=== PATIENT | male | born 1945 | race Caucasian/White ===

== ENCOUNTER 2017-06-27 06:58 | Outpatient (CLI) | payer MEDICARE | END 2017-06-27 06:59 | disposition home or self-care (01) | LOC: BICULT 06:58 | PROVIDERS: ATTEND Family Medicine | DX: Z87.891 Personal history of nicotine dependence (principal); Z82.49 Family history of ischemic heart disease and other diseases of the circulatory system | CPT/HCPCS: 76775 ==

== ENCOUNTER 2017-09-21 10:44 | Outpatient (CLI) | payer MEDICARE | END 2017-09-21 10:45 | disposition home or self-care (01) | LOC: BICULT 10:44 | PROVIDERS: ATTEND Family Medicine | DX: K70.30 Alcoholic cirrhosis of liver without ascites (principal); K76.89 Other specified diseases of liver | CPT/HCPCS: 36415; 76705; 85025 ==

== ENCOUNTER 2017-10-16 09:47 | Outpatient (CLI) | payer MEDICARE ==
--- NOTE | 2017-10-16 11:54 | CT ---
CT ABDOMEN WITHOUT AND WITH CONTRAST: Date: 10/16/17 COMPARISON: None. HISTORY: Right upper quadrant abdominal pain and bloating. Alcoholic cirrhosis. TECHNIQUE: Multiple contiguous axial images were obtained in a CT of the abdomen only without and with contrast. PO contrast was administered. Coronal reformats were performed. Postcontrast images were obtained in arterial and portal venous phases. FINDINGS: There is diffuse fatty infiltration of the liver. The liver morphology does not appear overtly cirrho tic. No focal liver lesions are seen. There is a 1.1 cm hypodensity in the left kidney which represents a cyst. The gallbladder, right kidn ey, adrenal glands, spleen, and pancreas are unremarkable. No free air, free fluid, or stranding chang ges are seen in the abdomen. The visualized large and small bowel are unremarkable. No abdominal adenopathy is seen. Atherosclerot ic calcifications are seen in the aorta. Degenerative changes are seen in the spine. The visualized inferior thorax and abdominal wall soft ti ssues are unremarkable. IMPRESSION: 1. Left renal cyst. 2. Fatty liver. POS: NILS
[2017-10-16] MEDS ORDERED: Iopamidol 370 76% 100 ML VIAL ONE (14:45)
== END 2017-10-16 09:48 | disposition home or self-care (01) ==
LOC: CT 09:47
PROVIDERS: ATTEND Family Medicine
DX: K70.30 Alcoholic cirrhosis of liver without ascites (principal); N28.1 Cyst of kidney, acquired; K76.0 Fatty (change of) liver, not elsewhere classified
CPT/HCPCS: 74170; 82565

== ENCOUNTER 2018-08-25 18:20 | Emergency (ER) | payer MEDICARE ==
[2018-08-25 19:05] LABS: #Lymphocytes 0.6 thou/uL (1.20-3.40); #Monocytes 0.8 thou/uL (0.11-0.59); #Neutrophils 5.8 thou/uL (1.40-6.50); %Basophils 0.3 % (0.0-1.0); %Eosinophils 0.3 % (0.0-10.0); %Lymphocytes 8.5 % (21.0-51.0); %Monocytes 10.7 % (0.0-10.0); %Neutrophils 80.2 % (42.0-75.0); Hemoglobin 9.6 g/dL (14.0-18.0); Mean Corpuscular HGB CONC 34.1 g/dL (32.0-36.0); Mean Corpuscular Hemoglobin 32.7 pg (27.0-31.0); Mean Corpuscular Volume 95.9 fL (78.0-98.0); Mean Platelet Volume 6.2 fL (7.4-10.4); Platelet Count 146 thou/uL (130-400); RBC Distribution Width 13.5 % (11.5-14.5); Red Blood Cell (RBC) Count 2.95 mill/uL (4.70-6.10); White Blood Cell (WBC) Count 7.2 thou/uL (4.8-10.8)
[2018-08-25 19:07] LABS: INR-International Normal Ratio 1.3; PTT 35.4 SEC (22.9-36.1); Prothrombin Time 16.1 SEC (12.0-14.7)
[2018-08-25 19:20] LABS: ALT (SGPT) 19 U/L (8-55); AST (SGOT) 39 U/L (5-34); Albumin 3.9 g/dL (3.4-4.8); Alkaline Phosphatase 83 U/L (40-150); Anion Gap 19 mmol/L (10-20); BUN (Urea Nitrogen) 10 mg/dL (8.4-25.7); Bilirubin, Total 1.3 mg/dL (0.2-1.2); Calc. Creatinine Clearance 0 mL/min (70-130); Calcium 9.5 mg/dL (7.8-10.44); Carbon Dioxide 22 mmol/L (23-31); Chloride 101 mmol/L (98-107); Estimated GFR-MDRD 80; Globulin 3.4 g/dL (2.4-3.5); Glucose 148 mg/dL (83-110); Potassium 4.1 mmol/L (3.5-5.1); Protein, Total 7.3 g/dL (5.8-8.1); Sodium 138 mmol/L (136-145)
[2018-08-25 19:36] LABS: Bilirubin Negative (Negative); Blood, Urine Large (Negative); Clarity TURBID (Clear); Glucose, Urine (Dipstick) Negative (Negative); Leukocyte Large (Negative); Nitrite Negative (Negative); Protein, Urine (Dipstick) 100 mg/dL (Neg-Trace); Specific Gravity, Urine 1.012 (1.002-1.036)
[2018-08-25 19:39] LABS: Hyaline Casts/LPF 4-6 HYALINE CAST LPF (0-3 Hyaline); Pathc Cast-AUWi Flag 1.77 (0-2.49); Squamous Epithelial None Seen HPF (0-3)
[2018-08-25 19:40] LABS: Yeast-AUWi Flag 149.2 (0-25.0)
[2018-08-25 19:48] LABS: RBC/HPF GREATER THAN 50-TNTC HPF (0-3)
[2018-08-25 19:49] LABS: Bacteria/HPF 3+ HPF (None Seen); Yeast-All Forms None Seen HPF (None Seen)
[2018-08-25] MEDS ORDERED: cefTRIAXone\\ROCEPHIN 2 GM VIAL ONE (20:16)
--- NOTE | 2018-08-25 22:23 | CT ---
CT ABDOMEN AND PELVIS WITHOUT CONTRAST: History: Hematuria. Comparison: 10-15-17 FINDINGS: Lung bases are clear. No pericardial effusion. There is moderate left sided hydroureteronephrosis due to what appears to be a large mass within the distal left ureter. The distal left ureter measures 3.2 cm. The ureterovesicular junction is enlarged with abnormal soft tissue thickening. There is no nephroureterolithiasis of either kidney. The right testicle appears to be within the right inguinal canal which may be sequellae of incomplete ly distention of the scrotal sac versus less likely cremasteric reflux. No dilated loops of large or small bowel. Noncontrast evaluation of the liver, gallbladder, spleen, a nd pancreas are unremarkable. Moderate atherosclerotic plaque of the aorta. Moderate facet arthropathy and degenerative disc space disease lower lumbar spine. IMPRESSION: Mild left sided hydronephrosis with moderate left sided hydroureter due to a mass in the distal left ureter measuring up to 3.2 cm, 1 cm from the ureterovesicular junction which is thickened. The left s ided renal calices do not appear to be engorged enough for a nephrostomy. Urologic consultation recom mended. POS: NILS
== END 2018-08-25 21:07 | disposition home or self-care (01) ==
LOC: ERS 18:20
DX: N13.2 Hydronephrosis with renal and ureteral calculous obstruction (principal); N39.0 Urinary tract infection, site not specified; E03.9 Hypothyroidism, unspecified; E78.00 Pure hypercholesterolemia, unspecified; Z79.899 Other long term (current) drug therapy; I10 Essential (primary) hypertension
CPT/HCPCS: 36415; 74176; 80053; 81003; 81015; 82550; 85025; 85610; 85730; 86850; 86900; 86901; 87077; 87086; 87186; 93005; 96365; J0696

== ENCOUNTER 2019-08-29 11:22 | Outpatient (CLI) | payer MEDICARE ==
--- NOTE | 2019-08-29 12:05 | MMO ---
Bilateral MAMMO Bilat Diag DDI+SUN. CLINICAL HISTORY: Patient is 74 years old and is seen for diagnostic exam, lump or thickening in both breasts and pain in the right breast. The patient has the following family history of breast cancer: mother, at age 80, malignant (generic). The patient has no personal history of cancer. VIEWS: The views performed were: bilateral craniocaudal with tomosynthesis; bilateral mediolateral oblique with tomosynthesis; and bilateral mediolateral with tomosynthesis. FILMS COMPARED: None This study has been interpreted with the assistance of computer-aided detection. MAMMOGRAM FINDINGS: There are scattered fibroglandular densities. Asymmetric retroareolar parenchymal density on the right corresponds to palpable concern. Mammogram and ultrasound suggest unilateral gynecomastia. Ultrasound guided biopsy could be performed for confirmation. If Biopsy is deferred, recommend 6 month follow up imaging. In the left breast, there are no suspicious masses, calcifications or areas of architectural distortion. IMPRESSION: FINDING IN THE RIGHT BREAST IS PROBABLY BENIGN. FOLLOW-UP IN 6 MONTHS IS RECOMMENDED. THE RESULTS OF THIS EXAM WERE SENT TO THE PATIENT. ACR BI-RADS Category 3 - Probably benign finding - short interval follow-up suggested. [facility] will notify the patient of the need for additional imaging services. MAMMOGRAPHY NOTE: 1. A negative mammogram report should not delay a biopsy if a dominant of clinically suspicious mass is present. 2. Approximately 10% to 15% of breast cancers are not detected by mammography. 3. Adenosis and dense breasts may obscure an underlying neoplasm. Reported by: URVASHI GUZMAN MD Electonically Signed: [id number]
--- NOTE | 2019-08-29 12:32 | ULT ---
ULTRASOUND RIGHT BREAST: Indications: Ultrasound right breast performed to assess enlarging right retroareolar breast tissue. Asymmetric retroareolar parenchymal densities noted on mammography. FINDINGS: Ultrasound demonstrates increased breast tissue in the retroareolar region of the right breast. This has the appearance of breast parenchyma rather than focal mass. Left retroareolar region is imaged wh ich shows minimal breast parenchyma. IMPRESSION: Mammogram and ultrasound findings are most consistent with unilateral gynecomastia. No focal mass or distortion is seen. Ultrasound guided biopsy could be performed for confirmation. If biopsy is deferr ed, recommend follow up right breast mammogram and ultrasound in six months to confirm stability. BIRADS 3 - probably benign. 6-month follow up imaging is recommended. POS: NILS
== END 2019-08-29 11:23 | disposition home or self-care (01) ==
LOC: BICMAMMO 11:22
PROVIDERS: ATTEND Family Medicine
DX: N63.10 Unspecified lump in the right breast, unspecified quadrant (principal); N63.20 Unspecified lump in the left breast, unspecified quadrant; T88.7XXA Unspecified adverse effect of drug or medicament, initial encounter
CPT/HCPCS: 76642; 77066; G0279

== ENCOUNTER 2020-02-04 17:03 | Emergency (ER) | payer MEDICARE ==
[2020-02-04 17:45] LABS: Hemoglobin 12.8 g/dL (14.0-18.0); Mean Corpuscular HGB CONC 33.3 g/dL (32.0-36.0); Mean Corpuscular Hemoglobin 30.6 pg (27.0-31.0); Mean Platelet Volume 7.6 fL (7.4-10.4); Platelet Count 125 thou/uL (130-400); RBC Distribution Width 18.5 % (11.5-14.5); Red Blood Cell (RBC) Count 4.17 mill/uL (4.70-6.10); White Blood Cell (WBC) Count 15.9 thou/uL (4.8-10.8)
[2020-02-04 18:08] LABS: Band 40 % (5-11); Lymphocytes 1 % (21-51); MDiff Complete? YES; Monocytes 21 % (0-10); Neutrophil 31 % (42-75); Platelet Morphology Comment Appears Decreased; Polychromasia SLIGHT = 2-3 cells (100X) (0-2/hpf); Reactive Lymphocytes 7 % (0-10)
[2020-02-04 18:09] LABS: Digoxin 0.77 ng/mL (0.8-2.0)
[2020-02-04 18:10] LABS: ALT (SGPT) 15 U/L (8-55); AST (SGOT) 32 U/L (5-34); Albumin 3.8 g/dL (3.4-4.8); Alkaline Phosphatase 60 U/L (40-110); Anion Gap 12 mmol/L (10-20); BUN (Urea Nitrogen) 14 mg/dL (8.4-25.7); Bilirubin, Total 1.3 mg/dL (0.2-1.2); Calc. Creatinine Clearance 0 mL/min (70-130); Calcium 8.5 mg/dL (7.8-10.44); Carbon Dioxide 25 mmol/L (23-31); Chloride 87 mmol/L (98-107); Estimated GFR-MDRD 53; Globulin 3.5 g/dL (2.4-3.5); Glucose 148 mg/dL (83-110); Potassium 3.4 mmol/L (3.5-5.1); Protein, Total 7.3 g/dL (5.8-8.1); Sodium 121 mmol/L (136-145)
[2020-02-04 18:27] LABS: CKMB 2.1 ng/mL (0-6.6)
== END 2020-02-04 20:05 | disposition left against medical advice (07) ==
LOC: ERS 17:03
DX: E87.1 Hypo-osmolality and hyponatremia (principal); R55 Syncope and collapse; R79.89 Other specified abnormal findings of blood chemistry; E03.9 Hypothyroidism, unspecified; E78.5 Hyperlipidemia, unspecified; E78.00 Pure hypercholesterolemia, unspecified; I10 Essential (primary) hypertension; V49.9XXA Car occupant (driver) (passenger) injured in unspecified traffic accident, initial encounter
CPT/HCPCS: 36415; 80053; 80162; 80307; 82553; 84484; 85025; 93005

== ENCOUNTER 2020-02-12 08:29 | Outpatient (CLI) | payer MEDICARE ==
--- NOTE | 2020-02-12 08:48 | RAD ---
XR Chest Pa Lat STANDARD HISTORY: Hyponatremia COMPARISON: 08/11/2016 FINDINGS: The heart size is normal. The lungs are well expanded without focal areas of consolidation, pneumothorax or pleural effusions. IMPRESSION: No radiographic evidence of acute cardiopulmonary process.
== END 2020-02-12 08:30 | disposition home or self-care (01) ==
LOC: BICRAD 08:29
PROVIDERS: ATTEND Family Medicine
DX: E87.1 Hypo-osmolality and hyponatremia (principal)
CPT/HCPCS: 36415; 71046; 80053; 82140; 82533; 83036; 83735; 83930; 84165; 84443; 85025

== ENCOUNTER 2020-03-26 14:57 | Outpatient (CLI) | payer MEDICARE ==
--- NOTE | 2020-03-26 15:29 | MMO ---
Right Breast MAMMO Unilat Diag DDI RT+SUN. CLINICAL HISTORY: Patient is 74 years old and is seen for diagnostic exam. The patient has the following family history of breast cancer: mother, at age 80, malignant (generic). The patient has no personal history of cancer. VIEWS: The views performed were: right craniocaudal with tomosynthesis; right mediolateral oblique with tomosynthesis; and right mediolateral with tomosynthesis. FILMS COMPARED: The present examination has been compared to a prior imaging study performed at [facility] on 08/29/2019. This study has been interpreted with the assistance of computer-aided detection. MAMMOGRAM FINDINGS: The breast is almost entirely fat. Changes of gynecomastia are redemonstrated, appearing more conspicuous than on prior. There are no suspicious masses, suspicious calcifications, or new areas of architectural distortion. IMPRESSION: THERE IS NO MAMMOGRAPHIC EVIDENCE OF MALIGNANCY. ANY DECISION TO BIOPSY SHOULD BE BASED ON CLINICAL ASSESSMENT. THE RESULTS OF THIS EXAM WERE SENT TO THE PATIENT. ACR BI-RADS Category 2 - Benign finding MAMMOGRAPHY NOTE: 1. A negative mammogram report should not delay a biopsy if a dominant of clinically suspicious mass is present. 2. Approximately 10% to 15% of breast cancers are not detected by mammography. 3. Adenosis and dense breasts may obscure an underlying neoplasm. Reported by: MURIEL RIDDLE MD Electonically Signed: [id number]
== END 2020-03-26 14:58 | disposition home or self-care (01) ==
LOC: BICMAMMO 14:57
PROVIDERS: ATTEND Family Medicine
DX: N63.10 Unspecified lump in the right breast, unspecified quadrant (principal); N62 Hypertrophy of breast; Z80.3 Family history of malignant neoplasm of breast
CPT/HCPCS: 77065; G0279

== ENCOUNTER 2020-05-04 19:31 | Emergency (ER) | payer MEDICARE ==
--- NOTE | 2020-05-04 20:51 | RAD ---
THREE VIEWS LEFT HAND: 05/04/20 COMPARISON: None. HISTORY: Fall Sunday with deformity of the left hand and specifically the middle finger. FINDINGS: Three views of the left hand shows dislocation of the PIP joint of the middle finger. The fingers are held in flexion. There is remodeling of the fifth metacarpal secondary to a remote Hill-Sachs fractu re in this location. There is joint space narrowing of the interphalangeal joints of the fingers cons istent with osteoarthritis. IMPRESSION: PIP dislocation of the middle finger. POS: EAA
--- NOTE | 2020-05-04 21:32 | CT ---
CT Brain WO Con: 05/04/2020 9:15 PM CLINICAL HISTORY: Fall with head injury. IMAGING TECHNIQUE: Multiple CT images were obtained of the brain without IV contrast. COMPARISON: None. FINDINGS: BRAIN: Evidence of acute infarct: None. Evidence of chronic ischemic change:None. Evidence of intracranial hemorrhage: None. Evidence of midline shift: Third ventricle and septum pellucidum are midline. Ventricles: No hydrocephalus. There is mild generalized cerebral and cerebellar atrophy. SKULL: Intact. VISUALIZED PARANASAL SINUSES: Clear. MASTOID AIR CELLS: There are partial effusions within the mastoid air cells bilaterally. EXTRACRANIAL SOFT TISSUES: Normal. IMPRESSION: No acute intracranial abnormality.
[2020-05-04 21:47] LABS: Hemoglobin 12.9 g/dL (14.0-18.0); Mean Corpuscular HGB CONC 34.9 g/dL (32.0-36.0); Mean Corpuscular Hemoglobin 33.4 pg (27.0-31.0); Mean Corpuscular Volume 95.8 fL (78.0-98.0); Mean Platelet Volume 6.4 fL (7.4-10.4); Platelet Count 183 thou/uL (130-400); RBC Distribution Width 14.6 % (11.5-14.5); Red Blood Cell (RBC) Count 3.85 mill/uL (4.70-6.10); White Blood Cell (WBC) Count 7.1 thou/uL (4.8-10.8)
[2020-05-04 21:49] LABS: INR-International Normal Ratio 1.1; Prothrombin Time 14.7 sec (12.0-14.7)
[2020-05-04 21:50] LABS: PTT 37.7 sec (22.9-36.1)
[2020-05-04] MEDS ORDERED: Bupivacaine 0.5% 10 ML VIAL ONE (21:59)
[2020-05-04 22:04] LABS: ALT (SGPT) 30 U/L (8-55); AST (SGOT) 47 U/L (5-34); Albumin 4.2 g/dL (3.4-4.8); Alkaline Phosphatase 92 U/L (40-110); Anion Gap 15 mmol/L (10-20); BUN (Urea Nitrogen) 9 mg/dL (8.4-25.7); Bilirubin, Total 1.2 mg/dL (0.2-1.2); Calc. Creatinine Clearance 0 mL/min (70-130); Calcium 9.1 mg/dL (7.8-10.44); Carbon Dioxide 27 mmol/L (23-31); Chloride 96 mmol/L (98-107); Estimated GFR-MDRD 83; Globulin 3.3 g/dL (2.4-3.5); Glucose 98 mg/dL (83-110); Magnesium 1.4 mg/dL (1.6-2.6); Potassium 3.8 mmol/L (3.5-5.1); Protein, Total 7.5 g/dL (5.8-8.1); Sodium 134 mmol/L (136-145)
[2020-05-04 22:22] LABS: Band 10 % (5-11); Eosinophils 4 % (0-10); Hypochromia SLIGHT = 6-15 cells (100X) (0-5/hpf); Lymphocytes 10 % (21-51); MDiff Complete? YES; Monocytes 14 % (0-10); Neutrophil 62 % (42-75); Platelet Morphology Comment Appears Adequate
== END 2020-05-04 23:30 | disposition home or self-care (01) ==
LOC: ERS 19:31
DX: S63.283A Dislocation of proximal interphalangeal joint of left middle finger, initial encounter (principal); E03.9 Hypothyroidism, unspecified; E78.5 Hyperlipidemia, unspecified; E78.00 Pure hypercholesterolemia, unspecified; I48.91 Unspecified atrial fibrillation; I10 Essential (primary) hypertension; Z79.899 Other long term (current) drug therapy; Z91.81 History of falling; W18.30XA Fall on same level, unspecified, initial encounter
CPT/HCPCS: 26770; 36415; 70450; 80053; 83735; 84484; 85025; 85610; 85730; 93005; J3490

== ENCOUNTER 2023-01-18 21:16 | Inpatient (IN) | payer MEDICARE ==
[2023-01-18] MEDS ORDERED: Ondansetron PF 4 MG/2 ML Vial ONE (21:48)
[2023-01-18 22:15] LABS: #Monocytes 1.2 thou/uL (0.11-0.59); #Neutrophils 8.6 thou/uL (1.40-6.50); %Basophils 0.1 % (0.0-1.0); %Monocytes 11.6 % (0.0-10.0); %Neutrophils 84.8 % (42.0-75.0); Mean Corpuscular HGB CONC 32.1 g/dL (32.0-36.0); Mean Corpuscular Hemoglobin 29.7 pg (27.0-31.0); Mean Corpuscular Volume 92.4 fl (78.0-98.0); Mean Platelet Volume 9.1 fL (7.4-10.4); RBC Distribution Width 15.7 % (11.5-14.5); Red Blood Cell (RBC) Count 3.03 mill/uL (4.70-6.10); White Blood Cell (WBC) Count 10.2 10x3/uL (4.8-10.8)
[2023-01-18 22:31] LABS: ALT (SGPT) 27 U/L (8-55); AST (SGOT) 80 U/L (5-34); Albumin 4.2 g/dL (3.4-4.8); Alcohol Less than 10.0 mg/dL (Less than 10); Alkaline Phosphatase 189 U/L (40-110); Anion Gap 22 mmol/L (10-20); BUN (Urea Nitrogen) 12 mg/dL (8.4-25.7); Bilirubin, Total 2.6 mg/dL (0.2-1.2); Calc. Creatinine Clearance 0 mL/min (70-130); Calcium 9.3 mg/dL (7.8-10.44); Carbon Dioxide 20 mmol/L (23-31); Chloride 101 mmol/L (98-107); Estimated GFR 69; Globulin 3.1 g/dL (2.4-3.5); Glucose 113 mg/dL (83-110); Potassium 4.7 mmol/L (3.5-5.1); Protein, Total 7.3 g/dL (5.8-8.1); Sodium 138 mmol/L (136-145)
[2023-01-18 22:36] LABS: Manual Diff?? YES; Platelet Count 90 10x3/uL (130-400)
[2023-01-18 22:48] LABS: Bacteria/HPF None Seen HPF (None Seen); Bilirubin Negative (Negative); Blood, Urine 3+ (Negative); CAUTI Indications for Culture Pelvic or flank pain; Clarity Clear (Clear); Glucose, Urine (Dipstick) Normal (Negative); Ketone, Urine 20 mg/dL (Negative); Leukocyte Negative Leu/uL (Negative); Mucous/LPF Rare LPF (<2+); Nitrite Negative (Negative); Protein, Urine (Dipstick) 50 mg/dL (Neg-Trace); Specific Gravity, Urine 1.018 (1.002-1.036); Squamous Epithelial 0-3 HPF (0-3); Urobilinogen 3 mg/dL (Less than 2); WBC/HPF 0-3 HPF (0-3)
[2023-01-18 22:52] LABS: Urine Culture Reflex No No
[2023-01-18 23:20] LABS: Anisocytosis MARKED = >30 cells HPF (0-5); Band 11 % (5-11); Lymphocytes 3 % (21-51); Macrocytosis MODERATE=16-30 cells HPF (0-5); Monocytes 6 % (0-10); Neutrophil 79 % (42-75); Platelet Adequacy Comment Platelets Decreased; Polychromasia SLIGHT = 2-3 cells HPF (0-2); Reactive Lymphocytes 1 % (0-10); Total Cell Count 101
[2023-01-19] MEDS ORDERED: Ondansetron ODT 4 MG TAB PO PRN (04:17)
[2023-01-19] MEDS ORDERED: Lorazepam 1 MG TAB PO PRN (04:17)
[2023-01-19] MEDS ORDERED: Lorazepam 2 MG/ML VIAL IM PRN (04:17)
[2023-01-19] MEDS ORDERED: Electrolyte Replacement Protocol 1 EACH FS SCH (04:30)
[2023-01-19 04:51] LABS: CKMB 43.5 ng/mL (0-6.6)
[2023-01-19] MEDS ORDERED: D5 1/2 NS w/20 mEq KCL 1,000 ML IV SCH (05:00)
[2023-01-19 05:07] LABS: Magnesium 1.6 mg/dL (1.6-2.6)
[2023-01-19] MEDS: Lorazepam 1 MG TAB PO SCH ×3 (05:29→18:45)
[2023-01-19] MEDS: Thiamine HCl 200 MG/2 ML VIAL SLOW IVP SCH (05:29)
[2023-01-19] MEDS: Levothyroxine Sodium 50 MCG TAB PO SCH (05:29)
[2023-01-19 05:38] VITALS: BMI 24.5
[2023-01-19 06:49] LABS: Troponin I 0.066 ng/mL (< 0.028)
[2023-01-19] MEDS ORDERED: Magnesium 2 GM/50 ML(in water) 2 GM in Premix Bag 1 BAG IVPB SCH (08:00)
[2023-01-19] MEDS: Multivit, Therapeutic 1 TAB PO SCH (08:23)
[2023-01-19] MEDS: Folic Acid 1 MG TAB PO SCH (08:23)
[2023-01-19] MEDS ORDERED: Dronedarone HCl 400 MG TAB PO SCH (09:00)
[2023-01-19] MEDS ORDERED: Apixaban 5 MG TAB PO SCH (09:00)
[2023-01-19] MEDS: Sodium Chloride 0.9% 1,000 ML IV SCH ×2 (11:58→20:48)
[2023-01-19 16:54] LABS: Magnesium 1.9 mg/dL (1.6-2.6)
[2023-01-19] MEDS: Montelukast Sodium 10 mg Tablet PO SCH (20:48)
[2023-01-19] MEDS: Atorvastatin Calcium 40 MG TAB PO SCH (20:48)
[2023-01-19] MEDS: Amlodipine 5 MG TAB PO SCH (20:49)
[2023-01-20] MEDS: Lorazepam 1 MG TAB PO SCH ×4 (00:07→16:03)
[2023-01-20 03:51] LABS: #Monocytes 1.3 thou/uL (0.11-0.59); #Neutrophils 8.2 thou/uL (1.40-6.50); %Basophils 0.2 % (0.0-1.0); %Eosinophils 0.2 % (0.0-10.0); %Lymphocytes 6.5 % (21.0-51.0); %Monocytes 12.9 % (0.0-10.0); %Neutrophils 79.4 % (42.0-75.0); Hemoglobin 8.5 g/dL (14.0-18.0); Mean Corpuscular HGB CONC 31.3 g/dL (32.0-36.0); Mean Corpuscular Hemoglobin 29.6 pg (27.0-31.0); Mean Corpuscular Volume 94.8 fl (78.0-98.0); RBC Distribution Width 15.7 % (11.5-14.5); Red Blood Cell (RBC) Count 2.87 mill/uL (4.70-6.10); White Blood Cell (WBC) Count 10.3 10x3/uL (4.8-10.8)
[2023-01-20 03:56] LABS: Platelet Count 71 10x3/uL (130-400)
[2023-01-20] MEDS ORDERED: Lorazepam 1 MG TAB PO PRN (04:17)
[2023-01-20] MEDS: Thiamine HCl 200 MG/2 ML VIAL SLOW IVP SCH (05:45)
[2023-01-20] MEDS: Sodium Chloride 0.9% 1,000 ML IV SCH ×3 (05:45→16:02)
[2023-01-20] MEDS: Levothyroxine Sodium 50 MCG TAB PO SCH (05:45)
[2023-01-20] MEDS ORDERED: Magnesium 2 GM/50 ML(in water) 2 GM in Premix Bag 1 BAG IVPB SCH (08:00)
[2023-01-20] MEDS: Folic Acid 1 MG TAB PO SCH (08:44)
[2023-01-20] MEDS: Multivit, Therapeutic 1 TAB PO SCH (08:44)
[2023-01-20 10:35] LABS: BUN (Urea Nitrogen) 15 mg/dL (8.4-25.7); Calc. Creatinine Clearance 72 mL/min (70-130); Calcium 8.4 mg/dL (7.8-10.44); Carbon Dioxide 21 mmol/L (23-31); Chloride 100 mmol/L (98-107); Estimated GFR 78; Glucose 153 mg/dL (83-110); Potassium 4.1 mmol/L (3.5-5.1); Sodium 132 mmol/L (136-145)
[2023-01-20 11:03] LABS: Anion Gap 15 mmol/L (10-20)
[2023-01-20] MEDS: Acetaminophen 500 MG TAB PO PRN (21:43)
[2023-01-20] MEDS: Amlodipine 5 MG TAB PO SCH (21:43)
[2023-01-20] MEDS: Montelukast Sodium 10 mg Tablet PO SCH (21:43)
[2023-01-20] MEDS: Atorvastatin Calcium 40 MG TAB PO SCH (21:44)
[2023-01-21] MEDS: Lorazepam 1 MG TAB PO SCH (00:01)
[2023-01-21] MEDS ORDERED: Lorazepam 1 MG TAB PO PRN (04:17)
[2023-01-21] MEDS: Sodium Chloride 0.9% 1,000 ML IV SCH ×2 (04:25→13:45)
[2023-01-21] MEDS: Lorazepam 0.5 MG TAB PO SCH ×4 (04:25→23:20)
[2023-01-21 04:54] LABS: #Eosinphils 0.1 thou/uL (0.0-0.7); #Monocytes 1.4 thou/uL (0.11-0.59); #Neutrophils 7.1 thou/uL (1.40-6.50); %Basophils 0.3 % (0.0-1.0); %Eosinophils 0.6 % (0.0-10.0); %Lymphocytes 8.5 % (21.0-51.0); %Monocytes 14.3 % (0.0-10.0); %Neutrophils 75.2 % (42.0-75.0); Hemoglobin 7.3 g/dL (14.0-18.0); Mean Corpuscular HGB CONC 31.9 g/dL (32.0-36.0); Mean Corpuscular Hemoglobin 29.9 pg (27.0-31.0); Mean Corpuscular Volume 93.9 fl (78.0-98.0); Mean Platelet Volume 10.4 fL (7.4-10.4); RBC Distribution Width 15.7 % (11.5-14.5); Red Blood Cell (RBC) Count 2.44 mill/uL (4.70-6.10); White Blood Cell (WBC) Count 9.5 10x3/uL (4.8-10.8)
[2023-01-21 04:58] LABS: Platelet Count 86 10x3/uL (130-400)
[2023-01-21] MEDS: Levothyroxine Sodium 50 MCG TAB PO SCH (05:13)
[2023-01-21] MEDS: Thiamine HCl 200 MG/2 ML VIAL SLOW IVP SCH (05:13)
[2023-01-21 05:17] LABS: Anion Gap 14 mmol/L (10-20); BUN (Urea Nitrogen) 15 mg/dL (8.4-25.7); Calc. Creatinine Clearance 86 mL/min (70-130); Calcium 8.3 mg/dL (7.8-10.44); Carbon Dioxide 22 mmol/L (23-31); Chloride 100 mmol/L (98-107); Estimated GFR 91; Glucose 108 mg/dL (83-110); Potassium 3.6 mmol/L (3.5-5.1); Sodium 132 mmol/L (136-145)
[2023-01-21 05:29] LABS: CK (CPK) 6723 U/L (30-200)
[2023-01-21] MEDS: Multivit, Therapeutic 1 TAB PO SCH (07:57)
[2023-01-21] MEDS: Folic Acid 1 MG TAB PO SCH (07:57)
[2023-01-21] MEDS: Acetaminophen 500 MG TAB PO PRN ×2 (13:44→23:20)
[2023-01-21] MEDS: Montelukast Sodium 10 mg Tablet PO SCH (21:01)
[2023-01-21] MEDS: Amlodipine 5 MG TAB PO SCH (21:01)
[2023-01-21] MEDS: Atorvastatin Calcium 40 MG TAB PO SCH (21:01)
[2023-01-22] MEDS: Sodium Chloride 0.9% 1,000 ML IV SCH ×2 (04:20→15:37)
[2023-01-22 05:29] LABS: #Eosinphils 0.2 thou/uL (0.0-0.7); #Monocytes 1.3 thou/uL (0.11-0.59); #Neutrophils 5.6 thou/uL (1.40-6.50); %Basophils 0.5 % (0.0-1.0); %Eosinophils 2.4 % (0.0-10.0); %Lymphocytes 8.7 % (21.0-51.0); %Monocytes 16.9 % (0.0-10.0); %Neutrophils 70.9 % (42.0-75.0); Hemoglobin 6.7 g/dL (14.0-18.0); Mean Corpuscular HGB CONC 31.8 g/dL (32.0-36.0); Mean Corpuscular Hemoglobin 30.7 pg (27.0-31.0); Mean Corpuscular Volume 96.8 fl (78.0-98.0); Mean Platelet Volume 10.5 fL (7.4-10.4); Platelet Count 103 10x3/uL (130-400); RBC Distribution Width 15.6 % (11.5-14.5); Red Blood Cell (RBC) Count 2.18 mill/uL (4.70-6.10); White Blood Cell (WBC) Count 7.9 10x3/uL (4.8-10.8)
[2023-01-22 05:51] LABS: Anion Gap 14 mmol/L (10-20); BUN (Urea Nitrogen) 11 mg/dL (8.4-25.7); Calc. Creatinine Clearance 88 mL/min (70-130); Calcium 8.2 mg/dL (7.8-10.44); Carbon Dioxide 21 mmol/L (23-31); Chloride 103 mmol/L (98-107); Estimated GFR 92; Glucose 98 mg/dL (83-110); Potassium 4.1 mmol/L (3.5-5.1); Sodium 134 mmol/L (136-145)
[2023-01-22 06:05] LABS: CK (CPK) 5333 U/L (30-200)
[2023-01-22] MEDS: Levothyroxine Sodium 50 MCG TAB PO SCH (06:18)
[2023-01-22] MEDS: Acetaminophen 500 MG TAB PO PRN ×3 (08:35→20:13)
[2023-01-22] MEDS: Folic Acid 1 MG TAB PO SCH (08:36)
[2023-01-22] MEDS: Multivit, Therapeutic 1 TAB PO SCH (08:36)
[2023-01-22] MEDS: Thiamine 100 MG TAB PO SCH (08:39)
[2023-01-22] MEDS: Amlodipine 5 MG TAB PO SCH (20:12)
[2023-01-22] MEDS: Atorvastatin Calcium 40 MG TAB PO SCH (20:12)
[2023-01-22] MEDS: Montelukast Sodium 10 mg Tablet PO SCH (20:24)
[2023-01-22] MEDS: Lorazepam 0.5 MG TAB PO PRN (21:07)
[2023-01-23 04:44] LABS: #Eosinphils 0.1 thou/uL (0.0-0.7); #Monocytes 1.4 thou/uL (0.11-0.59); #Neutrophils 5.3 thou/uL (1.40-6.50); %Basophils 0.3 % (0.0-1.0); %Eosinophils 1.3 % (0.0-10.0); %Lymphocytes 9.4 % (21.0-51.0); %Monocytes 18.3 % (0.0-10.0); %Neutrophils 69.5 % (42.0-75.0); Hemoglobin 8.4 g/dL (14.0-18.0); Mean Corpuscular HGB CONC 31.8 g/dL (32.0-36.0); Mean Platelet Volume 9.1 fL (7.4-10.4); Platelet Count 114 10x3/uL (130-400); RBC Distribution Width 17.6 % (11.5-14.5); White Blood Cell (WBC) Count 7.7 10x3/uL (4.8-10.8)
[2023-01-23] MEDS: Levothyroxine Sodium 50 MCG TAB PO SCH (05:07)
[2023-01-23] MEDS: Sodium Chloride 0.9% 1,000 ML IV SCH ×2 (05:07→17:26)
[2023-01-23 05:22] LABS: Anion Gap 15 mmol/L (10-20); BUN (Urea Nitrogen) 9 mg/dL (8.4-25.7); CK (CPK) 3122 U/L (30-200); Calc. Creatinine Clearance 89 mL/min (70-130); Calcium 8.5 mg/dL (7.8-10.44); Carbon Dioxide 21 mmol/L (23-31); Chloride 99 mmol/L (98-107); Estimated GFR 92; Glucose 94 mg/dL (83-110); Potassium 3.6 mmol/L (3.5-5.1); Sodium 131 mmol/L (136-145)
[2023-01-23] MEDS: Multivit, Therapeutic 1 TAB PO SCH (09:27)
[2023-01-23] MEDS: Thiamine 100 MG TAB PO SCH (09:27)
[2023-01-23] MEDS: Acetaminophen 500 MG TAB PO PRN ×2 (09:27→15:45)
[2023-01-23] MEDS: Folic Acid 1 MG TAB PO SCH (09:27)
[2023-01-23] MEDS: Montelukast Sodium 10 mg Tablet PO SCH (21:54)
[2023-01-23] MEDS: Apixaban 5 MG TAB PO SCH (21:54)
[2023-01-23] MEDS: Amlodipine 5 MG TAB PO SCH (21:54)
[2023-01-23] MEDS: Atorvastatin Calcium 40 MG TAB PO SCH (21:54)
[2023-01-24] MEDS: Sodium Chloride 0.9% 1,000 ML IV SCH ×2 (03:59→12:18)
[2023-01-24] MEDS: Levothyroxine Sodium 50 MCG TAB PO SCH (06:35)
[2023-01-24 06:38] LABS: Hemoglobin 9.1 g/dL (14.0-18.0); Manual Diff?? YES; Mean Corpuscular HGB CONC 33.6 g/dL (32.0-36.0); Mean Corpuscular Hemoglobin 29.4 pg (27.0-31.0); Mean Corpuscular Volume 87.7 fl (78.0-98.0); Mean Platelet Volume 9.3 fL (7.4-10.4); Platelet Count 165 10x3/uL (130-400); RBC Distribution Width 17.1 % (11.5-14.5); Red Blood Cell (RBC) Count 3.09 mill/uL (4.70-6.10); White Blood Cell (WBC) Count 10.4 10x3/uL (4.8-10.8)
[2023-01-24 06:53] LABS: Delete Auto Diff?? YES
[2023-01-24 07:17] LABS: Anion Gap 15 mmol/L (10-20); BUN (Urea Nitrogen) 9 mg/dL (8.4-25.7); CK (CPK) 1704 U/L (30-200); Calc. Creatinine Clearance 95 mL/min (70-130); Calcium 8.6 mg/dL (7.8-10.44); Carbon Dioxide 21 mmol/L (23-31); Chloride 99 mmol/L (98-107); Estimated GFR 94; Glucose 93 mg/dL (83-110); Potassium 3.3 mmol/L (3.5-5.1); Sodium 132 mmol/L (136-145)
[2023-01-24 07:30] LABS: Band 12 % (5-11); CellaVision Operator ID LAB.GE; Giant Platelets 0.9 % (0-5); Large Platelets 0.9 % (0-5); Lymphocytes 4 % (21-51); Metamyelocyte 1 % (0-0); Monocytes 19 % (0-10); Neutrophil 57 % (42-75); Platelet Adequacy Comment Platelets Normal; Poikilocytosis SLIGHT = 6-15 cells HPF (0-5); Polychromasia SLIGHT = 2-3 cells HPF (0-2); Reactive Lymphocytes 6 % (0-10); Total Cell Count 106
[2023-01-24] MEDS ORDERED: Potassium Chloride 20 MEQ TAB PO SCH (08:00)
[2023-01-24] MEDS: Folic Acid 1 MG TAB PO SCH (09:25)
[2023-01-24] MEDS: Apixaban 5 MG TAB PO SCH ×2 (09:25→20:10)
[2023-01-24] MEDS: Multivit, Therapeutic 1 TAB PO SCH (09:25)
[2023-01-24] MEDS: Acetaminophen 500 MG TAB PO PRN (09:26)
[2023-01-24] MEDS: Thiamine 100 MG TAB PO SCH (10:41)
[2023-01-24] MEDS: traMADol HCl 50 MG TAB PO PRN ×2 (15:21→20:09)
[2023-01-24] MEDS: Atorvastatin Calcium 40 MG TAB PO SCH (20:08)
[2023-01-24] MEDS: Amlodipine 5 MG TAB PO SCH (20:11)
[2023-01-24] MEDS: Montelukast Sodium 10 mg Tablet PO SCH (20:11)
[2023-01-24] MEDS ORDERED: Lidocaine 4% Patch TD SCH (20:30)
[2023-01-25] MEDS: Sodium Chloride 0.9% 1,000 ML IV SCH ×3 (00:59→20:57)
[2023-01-25] MEDS: traMADol HCl 50 MG TAB PO PRN ×3 (02:57→22:43)
[2023-01-25] MEDS: Levothyroxine Sodium 50 MCG TAB PO SCH (05:29)
[2023-01-25] MEDS: Apixaban 5 MG TAB PO SCH (08:51)
[2023-01-25] MEDS: Thiamine 100 MG TAB PO SCH (08:51)
[2023-01-25] MEDS: Multivit, Therapeutic 1 TAB PO SCH (08:51)
[2023-01-25] MEDS: Folic Acid 1 MG TAB PO SCH (08:51)
[2023-01-25] MEDS ORDERED: Transdermal Patch Removal TOP SCH (09:00)
[2023-01-25] MEDS ORDERED: Magnevist 469MG/ML 20 ML VIAL ONE (10:30)
[2023-01-25 11:43] LABS: Hemoglobin 8.1 g/dL (14.0-18.0); Manual Diff?? YES; Mean Corpuscular Hemoglobin 29.2 pg (27.0-31.0); Mean Corpuscular Volume 94.2 fl (78.0-98.0); Mean Platelet Volume 9.8 fL (7.4-10.4); Platelet Count 260 10x3/uL (130-400); RBC Distribution Width 17.3 % (11.5-14.5); Red Blood Cell (RBC) Count 2.77 mill/uL (4.70-6.10)
[2023-01-25 11:51] LABS: Delete Auto Diff?? YES
[2023-01-25 12:02] LABS: Anion Gap 14 mmol/L (10-20); BUN (Urea Nitrogen) 13 mg/dL (8.4-25.7); Calc. Creatinine Clearance 88 mL/min (70-130); Calcium 8.4 mg/dL (7.8-10.44); Carbon Dioxide 19 mmol/L (23-31); Chloride 102 mmol/L (98-107); Estimated GFR 92; Glucose 112 mg/dL (83-110); Sodium 131 mmol/L (136-145)
[2023-01-25 12:23] LABS: Anisocytosis SLIGHT = 6-15 cells HPF (0-5); Band 20 % (5-11); Burr Cells SLIGHT = 2-5 cells HPF (0-1); CellaVision Operator ID LAB.KB; Eosinophils 1 % (0-10); Hypochromia SLIGHT = 6-15 cells HPF (0-5); Large Platelets 2.9 % (0-5); Lymphocytes 7 % (21-51); Macrocytosis SLIGHT = 6-15 cells HPF (0-5); Monocytes 17 % (0-10); Neutrophil 51 % (42-75); Ovalocytes SLIGHT = 2-5 cells HPF (0-1); Platelet Adequacy Comment Platelets Normal; Polychromasia SLIGHT = 2-3 cells HPF (0-2); Reactive Lymphocytes 3 % (0-10); Smudge Cells 4.8 %; Tear Drops SLIGHT = 2-5 cells HPF (0-1); Total Cell Count 104
[2023-01-25] MEDS: Atorvastatin Calcium 40 MG TAB PO SCH (22:38)
[2023-01-25] MEDS: Montelukast Sodium 10 mg Tablet PO SCH (22:38)
[2023-01-25] MEDS: Amlodipine 5 MG TAB PO SCH (22:39)
[2023-01-25] MEDS: Lorazepam 0.5 MG TAB PO PRN (23:12)
[2023-01-26 06:03] LABS: Hemoglobin 7.6 g/dL (14.0-18.0); Manual Diff?? YES; Mean Corpuscular HGB CONC 31.4 g/dL (32.0-36.0); Mean Corpuscular Hemoglobin 28.9 pg (27.0-31.0); Mean Platelet Volume 9.3 fL (7.4-10.4); Platelet Count 338 10x3/uL (130-400); RBC Distribution Width 17.2 % (11.5-14.5); Red Blood Cell (RBC) Count 2.63 mill/uL (4.70-6.10); White Blood Cell (WBC) Count 8.4 10x3/uL (4.8-10.8)
[2023-01-26 06:20] LABS: Delete Auto Diff?? YES
[2023-01-26 06:23] LABS: Anion Gap 15 mmol/L (10-20); BUN (Urea Nitrogen) 12 mg/dL (8.4-25.7); Calc. Creatinine Clearance 92 mL/min (70-130); Calcium 8.1 mg/dL (7.8-10.44); Carbon Dioxide 20 mmol/L (23-31); Chloride 102 mmol/L (98-107); Estimated GFR 93; Glucose 93 mg/dL (83-110); Potassium 3.9 mmol/L (3.5-5.1); Sodium 133 mmol/L (136-145)
[2023-01-26] MEDS: Levothyroxine Sodium 50 MCG TAB PO SCH (06:35)
[2023-01-26] MEDS: traMADol HCl 50 MG TAB PO PRN ×2 (06:39→13:12)
[2023-01-26 06:54] LABS: Band 8 % (5-11); CellaVision Operator ID lab.abc; Eosinophils 2 % (0-10); Lymphocytes 6 % (21-51); Metamyelocyte 2 % (0-0); Monocytes 23 % (0-10); Myelocyte 3 % (0-0); Neutrophil 57 % (42-75); Nucleated RBC (Manual Ct) 1 % (0); Platelet Adequacy Comment Platelets Normal; Polychromasia SLIGHT = 2-3 cells HPF (0-2); Smudge Cells 6.7 %; Total Cell Count 104
[2023-01-26] MEDS: Sodium Chloride 0.9% 1,000 ML IV SCH ×2 (07:46→16:10)
[2023-01-26] MEDS: Multivit, Therapeutic 1 TAB PO SCH (09:37)
[2023-01-26] MEDS: Thiamine 100 MG TAB PO SCH (09:38)
[2023-01-26] MEDS: Folic Acid 1 MG TAB PO SCH (09:38)
[2023-01-26] MEDS: Acetaminophen 500 MG TAB PO PRN (09:38)
[2023-01-26] MEDS: Magnesium Oxide 400 MG TAB PO SCH ×2 (16:09→20:26)
[2023-01-26 16:17] LABS: Kappa Lambda Light Chain Ratio 1.2 (0.26-1.65); Kappa Light Chains 31.6 mg/L (3.3-19.4); Lambda Light Chain 26.3 mg/L (5.7-26.3)
[2023-01-26] MEDS: Atorvastatin Calcium 40 MG TAB PO SCH (20:26)
[2023-01-26] MEDS: Digoxin 0.25 MG TAB PO SCH (20:26)
[2023-01-26] MEDS: Montelukast Sodium 10 mg Tablet PO SCH (20:26)
[2023-01-26] MEDS: Docusate 100 MG CAP PO SCH (20:26)
[2023-01-26] MEDS: Amlodipine 5 MG TAB PO SCH (20:26)
[2023-01-27] MEDS: Sodium Chloride 0.9% 1,000 ML IV SCH ×2 (03:23→13:08)
[2023-01-27 04:29] LABS: Hemoglobin 7.5 g/dL (14.0-18.0); Manual Diff?? YES; Mean Corpuscular HGB CONC 31.3 g/dL (32.0-36.0); Mean Corpuscular Hemoglobin 29.1 pg (27.0-31.0); Mean Platelet Volume 9.3 fL (7.4-10.4); Platelet Count 386 10x3/uL (130-400); RBC Distribution Width 16.9 % (11.5-14.5); Red Blood Cell (RBC) Count 2.58 mill/uL (4.70-6.10); White Blood Cell (WBC) Count 8.7 10x3/uL (4.8-10.8)
[2023-01-27 04:49] LABS: Anion Gap 14 mmol/L (10-20); BUN (Urea Nitrogen) 10 mg/dL (8.4-25.7); Carbon Dioxide 19 mmol/L (23-31); Chloride 98 mmol/L (98-107); Potassium 3.7 mmol/L (3.5-5.1); Sodium 127 mmol/L (136-145)
[2023-01-27 04:50] LABS: Calc. Creatinine Clearance 100 mL/min (70-130); Calcium 8.4 mg/dL (7.8-10.44); Estimated GFR 95; Glucose 91 mg/dL (83-110)
[2023-01-27 05:40] LABS: Delete Auto Diff?? YES
[2023-01-27] MEDS: Acetaminophen 500 MG TAB PO PRN (05:58)
[2023-01-27] MEDS: Levothyroxine Sodium 50 MCG TAB PO SCH (05:58)
[2023-01-27 06:35] LABS: Anisocytosis MODERATE=16-30 cells HPF (0-5); Band 6 % (5-11); CellaVision Operator ID LAB.JMM; Eosinophils 6 % (0-10); Hypochromia SLIGHT = 6-15 cells HPF (0-5); Large Platelets 1.9 % (0-5); Lymphocytes 10 % (21-51); Monocytes 17 % (0-10); Myelocyte 1 % (0-0); Neutrophil 59 % (42-75); Platelet Adequacy Comment Platelets Normal; Polychromasia SLIGHT = 2-3 cells HPF (0-2); Total Cell Count 106
[2023-01-27] MEDS ORDERED: Folic Acid 1 MG TAB PO SCH ×2 (09:00→21:00)
[2023-01-27] MEDS ORDERED: Multivitamin W/ Minerals 1 TAB PO SCH (09:00)
[2023-01-27] MEDS: traMADol HCl 50 MG TAB PO PRN ×2 (09:38→18:37)
[2023-01-27] MEDS: Folic Acid 1 MG TAB PO SCH (09:38)
[2023-01-27] MEDS: Magnesium Oxide 400 MG TAB PO SCH ×3 (09:39→22:31)
[2023-01-27] MEDS: Finasteride 5 MG TAB PO SCH (09:39)
[2023-01-27] MEDS: Multivit, Therapeutic 1 TAB PO SCH (09:39)
[2023-01-27] MEDS: Docusate 100 MG CAP PO SCH (09:39)
[2023-01-27] MEDS: Thiamine 100 MG TAB PO SCH (09:41)
[2023-01-27 13:08] LABS: Anion Gap 15 mmol/L (10-20); BUN (Urea Nitrogen) 12 mg/dL (8.4-25.7); Calc. Creatinine Clearance 97 mL/min (70-130); Calcium 8.6 mg/dL (7.8-10.44); Carbon Dioxide 21 mmol/L (23-31); Chloride 99 mmol/L (98-107); Estimated GFR 94; Glucose 99 mg/dL (83-110); Magnesium 1.4 mg/dL (1.6-2.6); Phosphorus 3.5 mg/dL (2.3-4.7); Potassium 3.6 mmol/L (3.5-5.1); Sodium 131 mmol/L (136-145)
[2023-01-27] MEDS ORDERED: Magnesium Sulfate In Water 4 GM in Premix Bag 1 BAG IVPB SCH (14:00)
[2023-01-27] MEDS ORDERED: Magnesium Sulfate 4 GM in Sodium Chloride 0.9% 250 ML 250 ML IVPB SCH (14:00)
[2023-01-27] MEDS ORDERED: Multivit, Therapeutic 1 TAB PO SCH (21:00)
[2023-01-27] MEDS: Atorvastatin Calcium 40 MG TAB PO SCH (22:29)
[2023-01-27] MEDS: Calcium Carbonate 600 MG TAB PO SCH (22:29)
[2023-01-27] MEDS: Montelukast Sodium 10 mg Tablet PO SCH (22:30)
[2023-01-27] MEDS: Senokot S 8.6-50 MG TAB PO SCH (22:30)
[2023-01-27] MEDS: Amlodipine 5 MG TAB PO SCH (22:31)
[2023-01-27] MEDS: Cyanocobalamin (Vitamin B-12) 1,000 MCG TAB PO SCH (22:31)
[2023-01-27] MEDS: Digoxin 0.25 MG TAB PO SCH (22:51)
[2023-01-28] MEDS: traMADol HCl 50 MG TAB PO PRN (01:48)
[2023-01-28] MEDS: Levothyroxine Sodium 50 MCG TAB PO SCH (06:27)
[2023-01-28 08:49] LABS: #Basophils 0.1 thou/uL (0.0-0.2); #Eosinphils 0.2 thou/uL (0.0-0.7); #Monocytes 1.9 thou/uL (0.11-0.59); #Neutrophils 7.1 thou/uL (1.40-6.50); %Basophils 0.5 % (0.0-1.0); %Eosinophils 2.1 % (0.0-10.0); %Lymphocytes 8.7 % (21.0-51.0); %Monocytes 18.6 % (0.0-10.0); %Neutrophils 68.5 % (42.0-75.0); Hemoglobin 7.9 g/dL (14.0-18.0); Mean Corpuscular Hemoglobin 28.7 pg (27.0-31.0); Mean Corpuscular Volume 89.8 fl (78.0-98.0); Mean Platelet Volume 8.5 fL (7.4-10.4); Platelet Count 467 10x3/uL (130-400); RBC Distribution Width 16.6 % (11.5-14.5); Red Blood Cell (RBC) Count 2.75 mill/uL (4.70-6.10); White Blood Cell (WBC) Count 10.3 10x3/uL (4.8-10.8)
[2023-01-28] MEDS: Calcium Carbonate 600 MG TAB PO SCH ×2 (08:52→20:08)
[2023-01-28] MEDS: Magnesium Oxide 400 MG TAB PO SCH ×3 (08:53→20:09)
[2023-01-28] MEDS: Thiamine 100 MG TAB PO SCH (08:53)
[2023-01-28] MEDS: Senokot S 8.6-50 MG TAB PO SCH ×2 (08:53→20:08)
[2023-01-28] MEDS: Finasteride 5 MG TAB PO SCH (08:53)
[2023-01-28 09:16] LABS: ALT (SGPT) 30 U/L (8-55); AST (SGOT) 48 U/L (5-34); Albumin 3.1 g/dL (3.4-4.8); Alkaline Phosphatase 138 U/L (40-110); Anion Gap 16 mmol/L (10-20); BUN (Urea Nitrogen) 9 mg/dL (8.4-25.7); Bilirubin, Total 0.8 mg/dL (0.2-1.2); CK (CPK) 311 U/L (30-200); Calc. Creatinine Clearance 94 mL/min (70-130); Carbon Dioxide 21 mmol/L (23-31); Chloride 96 mmol/L (98-107); Estimated GFR 93; Globulin 3.2 g/dL (2.4-3.5); Glucose 95 mg/dL (83-110); Magnesium 1.7 mg/dL (1.6-2.6); Potassium 4.1 mmol/L (3.5-5.1); Protein, Total 6.3 g/dL (5.8-8.1); Sodium 129 mmol/L (136-145)
[2023-01-28] MEDS ORDERED: Magnesium 2 GM/50 ML(in water) 2 GM in Premix Bag 1 BAG IVPB SCH (09:30)
[2023-01-28] MEDS: Acetaminophen 500 MG TAB PO PRN (16:20)
[2023-01-28] MEDS: Amlodipine 5 MG TAB PO SCH (20:08)
[2023-01-28] MEDS: Digoxin 0.25 MG TAB PO SCH (20:08)
[2023-01-28] MEDS: Folic Acid 1 MG TAB PO SCH (20:09)
[2023-01-28] MEDS: Atorvastatin Calcium 40 MG TAB PO SCH (20:09)
[2023-01-28] MEDS: Montelukast Sodium 10 mg Tablet PO SCH (20:09)
[2023-01-28] MEDS: Cyanocobalamin (Vitamin B-12) 1,000 MCG TAB PO SCH (20:09)
[2023-01-28] MEDS: Multivit, Therapeutic 1 TAB PO SCH (20:10)
[2023-01-28] MEDS ORDERED: traMADol HCl 50 MG TAB PO SCH (21:15)
[2023-01-28 23:31] LABS: Bilirubin Negative (Negative); Blood, Urine Negative (Negative); CAUTI Indications for Culture Dysuria,urgency,freq; Clarity Turbid (Clear); Glucose, Urine (Dipstick) Normal (Negative); Ketone, Urine Negative (Negative); Leukocyte 250 Leu/uL (Negative); Nitrite Negative (Negative); Protein, Urine (Dipstick) Negative (Neg-Trace); RBC/HPF 0-3 HPF (0-3); Specific Gravity, Urine 1.009 (1.002-1.036); Squamous Epithelial 0-3 HPF (0-3); Urobilinogen Normal mg/dL (Less than 2)
[2023-01-28 23:37] LABS: Bacteria/HPF 1+ HPF (None Seen)
[2023-01-28 23:38] LABS: Urine Culture Reflex No No
[2023-01-29] MEDS: cefTRIAXone\\ROCEPHIN 1 GM in Sodium Chloride 0.9% 100 ML IVPB SCH ×2 (00:05→23:16)
[2023-01-29 05:24] LABS: #Basophils 0.1 thou/uL (0.0-0.2); #Eosinphils 0.3 thou/uL (0.0-0.7); #Monocytes 1.9 thou/uL (0.11-0.59); #Neutrophils 7.8 thou/uL (1.40-6.50); %Basophils 0.6 % (0.0-1.0); %Eosinophils 2.3 % (0.0-10.0); %Lymphocytes 8.4 % (21.0-51.0); %Monocytes 16.8 % (0.0-10.0); %Neutrophils 70.6 % (42.0-75.0); Mean Corpuscular HGB CONC 32.3 g/dL (32.0-36.0); Mean Corpuscular Hemoglobin 28.7 pg (27.0-31.0); Mean Corpuscular Volume 88.9 fl (78.0-98.0); Mean Platelet Volume 8.8 fL (7.4-10.4); RBC Distribution Width 16.3 % (11.5-14.5); Red Blood Cell (RBC) Count 2.79 mill/uL (4.70-6.10); White Blood Cell (WBC) Count 11.1 10x3/uL (4.8-10.8)
[2023-01-29] MEDS: Levothyroxine Sodium 50 MCG TAB PO SCH (05:30)
[2023-01-29] MEDS: Acetaminophen 500 MG TAB PO PRN ×3 (05:30→22:57)
[2023-01-29 05:48] LABS: Anion Gap 16 mmol/L (10-20); BUN (Urea Nitrogen) 8 mg/dL (8.4-25.7); Calc. Creatinine Clearance 100 mL/min (70-130); Carbon Dioxide 19 mmol/L (23-31); Chloride 94 mmol/L (98-107); Estimated GFR 95; Glucose 88 mg/dL (83-110); Magnesium 1.5 mg/dL (1.6-2.6); Potassium 3.9 mmol/L (3.5-5.1); Sodium 125 mmol/L (136-145)
[2023-01-29 06:37] LABS: Platelet Count 583 10x3/uL (130-400)
[2023-01-29] MEDS ORDERED: Magnesium 2 GM/50 ML(in water) 2 GM in Premix Bag 1 BAG IVPB SCH (08:00)
[2023-01-29] MEDS: Senokot S 8.6-50 MG TAB PO SCH ×2 (10:36→21:09)
[2023-01-29] MEDS: Calcium Carbonate 600 MG TAB PO SCH ×2 (10:36→21:09)
[2023-01-29] MEDS: Finasteride 5 MG TAB PO SCH (10:36)
[2023-01-29] MEDS: Magnesium Oxide 400 MG TAB PO SCH ×3 (10:37→21:09)
[2023-01-29] MEDS: Thiamine 100 MG TAB PO SCH (10:38)
[2023-01-29] MEDS ORDERED: Lactated Ringer's 500 ML IV SCH (14:30)
[2023-01-29] MEDS ORDERED: Albumin 25% 25 GM/100 ML BOT IVPB SCH (14:30)
[2023-01-29 14:37] LABS: A/G Ratio 0.8 (0.7-1.7); Albumin 2.5 g/dL (2.9-4.4); Alpha 1 0.5 g/dL (0.0-0.4); Alpha 2 0.8 g/dL (0.4-1.0); Gamma 0.8 g/dL (0.4-1.8); Globulin, Total 3.1 g/dL (2.2-3.9); M-Spike Not Observed g/dL (Not Observed); Protein Electrophoresis Intrp Note: (.)
[2023-01-29 14:55] LABS: Sodium 126 mmol/L (136-145)
[2023-01-29] MEDS: Lactated Ringer's 1,000 ML IV SCH ×3 (15:30→21:23)
[2023-01-29 18:38] LABS: Sodium 128 mmol/L (136-145)
[2023-01-29] MEDS: Amlodipine 5 MG TAB PO SCH (21:08)
[2023-01-29] MEDS: Multivit, Therapeutic 1 TAB PO SCH (21:09)
[2023-01-29] MEDS: Montelukast Sodium 10 mg Tablet PO SCH (21:09)
[2023-01-29] MEDS: Atorvastatin Calcium 40 MG TAB PO SCH (21:09)
[2023-01-29] MEDS: Cyanocobalamin (Vitamin B-12) 1,000 MCG TAB PO SCH (21:09)
[2023-01-29] MEDS: Digoxin 0.25 MG TAB PO SCH (21:09)
[2023-01-29] MEDS: Folic Acid 1 MG TAB PO SCH (21:09)
[2023-01-29 22:43] LABS: Sodium 126 mmol/L (136-145)
[2023-01-30 02:32] LABS: #Basophils 0.1 thou/uL (0.0-0.2); #Eosinphils 0.2 thou/uL (0.0-0.7); #Monocytes 1.7 thou/uL (0.11-0.59); #Neutrophils 6.5 thou/uL (1.40-6.50); %Basophils 0.6 % (0.0-1.0); %Eosinophils 2.5 % (0.0-10.0); %Monocytes 17.4 % (0.0-10.0); %Neutrophils 67.3 % (42.0-75.0); Hemoglobin 7.6 g/dL (14.0-18.0); Mean Corpuscular HGB CONC 32.5 g/dL (32.0-36.0); Mean Corpuscular Hemoglobin 28.7 pg (27.0-31.0); Mean Corpuscular Volume 88.3 fl (78.0-98.0); Mean Platelet Volume 8.1 fL (7.4-10.4); Platelet Count 572 10x3/uL (130-400); Red Blood Cell (RBC) Count 2.65 mill/uL (4.70-6.10); White Blood Cell (WBC) Count 9.6 10x3/uL (4.8-10.8)
[2023-01-30 02:46] LABS: Sodium 129 mmol/L (136-145)
[2023-01-30 02:58] LABS: Iron 14 ug/dL (65-175); Iron Binding Capacity, Total 190 mcg/dL (261-462)
[2023-01-30 03:36] LABS: Thyroid Stimulating Hormone 7.7425 uIU/mL (0.35-4.94)
[2023-01-30 04:07] LABS: Ferritin 227.25 ng/mL (22-322)
[2023-01-30] MEDS: Levothyroxine Sodium 50 MCG TAB PO SCH (06:06)
[2023-01-30] MEDS ORDERED: Polyethylene Glycol 3350 17 GM Packet PO PRN (09:13)
[2023-01-30] MEDS: Calcium Carbonate 600 MG TAB PO SCH ×2 (12:02→20:57)
[2023-01-30] MEDS: Thiamine 100 MG TAB PO SCH (12:02)
[2023-01-30] MEDS: Senokot S 8.6-50 MG TAB PO SCH ×2 (12:02→20:48)
[2023-01-30] MEDS: Finasteride 5 MG TAB PO SCH (12:02)
[2023-01-30] MEDS: Magnesium Oxide 400 MG TAB PO SCH ×3 (12:02→20:57)
[2023-01-30] MEDS: Acetaminophen 500 MG TAB PO PRN (12:02)
[2023-01-30] MEDS: Ferrous Gluconate 324 MG TAB PO SCH (16:45)
[2023-01-30] MEDS: Lactated Ringer's 1,000 ML IV SCH (16:46)
[2023-01-30] MEDS: Atorvastatin Calcium 40 MG TAB PO SCH (20:57)
[2023-01-30] MEDS: Multivit, Therapeutic 1 TAB PO SCH (20:57)
[2023-01-30] MEDS: Amlodipine 5 MG TAB PO SCH (20:57)
[2023-01-30] MEDS: Cyanocobalamin (Vitamin B-12) 1,000 MCG TAB PO SCH (20:57)
[2023-01-30] MEDS: Montelukast Sodium 10 mg Tablet PO SCH (20:57)
[2023-01-30] MEDS: Digoxin 0.25 MG TAB PO SCH (20:58)
[2023-01-30] MEDS: Folic Acid 1 MG TAB PO SCH (20:58)
[2023-01-31] MEDS: cefTRIAXone\\ROCEPHIN 1 GM in Sodium Chloride 0.9% 100 ML IVPB SCH (01:43)
[2023-01-31 04:20] LABS: #Basophils 0.1 thou/uL (0.0-0.2); #Eosinphils 0.3 thou/uL (0.0-0.7); #Monocytes 1.6 thou/uL (0.11-0.59); %Basophils 0.6 % (0.0-1.0); %Eosinophils 3.1 % (0.0-10.0); %Monocytes 15.4 % (0.0-10.0); %Neutrophils 66.4 % (42.0-75.0); Hemoglobin 7.9 g/dL (14.0-18.0); Mean Corpuscular HGB CONC 32.8 g/dL (32.0-36.0); Mean Corpuscular Hemoglobin 28.4 pg (27.0-31.0); Mean Corpuscular Volume 86.7 fl (78.0-98.0); Mean Platelet Volume 8.8 fL (7.4-10.4); Platelet Count 720 10x3/uL (130-400); RBC Distribution Width 15.6 % (11.5-14.5); Red Blood Cell (RBC) Count 2.78 mill/uL (4.70-6.10); White Blood Cell (WBC) Count 10.6 10x3/uL (4.8-10.8)
[2023-01-31 04:43] LABS: Anion Gap 18 mmol/L (10-20); BUN (Urea Nitrogen) 11 mg/dL (8.4-25.7); Calc. Creatinine Clearance 94 mL/min (70-130); Calcium 9.4 mg/dL (7.8-10.44); Carbon Dioxide 20 mmol/L (23-31); Chloride 92 mmol/L (98-107); Estimated GFR 93; Glucose 99 mg/dL (83-110); Potassium 4.2 mmol/L (3.5-5.1); Sodium 126 mmol/L (136-145)
[2023-01-31] MEDS: Levothyroxine Sodium 50 MCG TAB PO SCH (05:36)
[2023-01-31] MEDS: Lactated Ringer's 1,000 ML IV SCH (06:00)
[2023-01-31] MEDS: Polyethylene Glycol 3350 17 GM Packet PO SCH (09:32)
[2023-01-31] MEDS: Ferrous Gluconate 324 MG TAB PO SCH ×2 (09:32→16:13)
[2023-01-31] MEDS: Calcium Carbonate 600 MG TAB PO SCH ×2 (09:33→20:43)
[2023-01-31] MEDS: Magnesium Oxide 400 MG TAB PO SCH ×3 (09:33→20:43)
[2023-01-31] MEDS: Senokot S 8.6-50 MG TAB PO SCH ×2 (09:33→20:44)
[2023-01-31] MEDS: Thiamine 100 MG TAB PO SCH (09:33)
[2023-01-31] MEDS: Finasteride 5 MG TAB PO SCH (09:33)
[2023-01-31] MEDS: Sodium Chloride 1 GM TAB PO SCH ×2 (15:42→20:43)
[2023-01-31] MEDS: Digoxin 0.25 MG TAB PO SCH (20:42)
[2023-01-31] MEDS: Cyanocobalamin (Vitamin B-12) 1,000 MCG TAB PO SCH (20:42)
[2023-01-31] MEDS: Folic Acid 1 MG TAB PO SCH (20:43)
[2023-01-31] MEDS: Multivit, Therapeutic 1 TAB PO SCH (20:43)
[2023-01-31] MEDS: Amlodipine 5 MG TAB PO SCH (20:43)
[2023-01-31] MEDS: Atorvastatin Calcium 40 MG TAB PO SCH (20:43)
[2023-01-31] MEDS: Montelukast Sodium 10 mg Tablet PO SCH (20:43)
[2023-02-01] MEDS: cefTRIAXone\\ROCEPHIN 1 GM in Sodium Chloride 0.9% 100 ML IVPB SCH (01:54)
[2023-02-01 04:59] LABS: Anion Gap 16 mmol/L (10-20); BUN (Urea Nitrogen) 9 mg/dL (8.4-25.7); Calc. Creatinine Clearance 90 mL/min (70-130); Calcium 9.3 mg/dL (7.8-10.44); Carbon Dioxide 21 mmol/L (23-31); Chloride 92 mmol/L (98-107); Estimated GFR 92; Glucose 93 mg/dL (83-110); Sodium 125 mmol/L (136-145)
[2023-02-01] MEDS: Levothyroxine Sodium 50 MCG TAB PO SCH (06:05)
[2023-02-01] MEDS: Calcium Carbonate 600 MG TAB PO SCH ×2 (09:31→20:57)
[2023-02-01] MEDS: Ferrous Gluconate 324 MG TAB PO SCH ×2 (09:31→17:25)
[2023-02-01] MEDS: Senokot S 8.6-50 MG TAB PO SCH ×2 (09:31→20:59)
[2023-02-01] MEDS: Finasteride 5 MG TAB PO SCH (09:32)
[2023-02-01] MEDS: Magnesium Oxide 400 MG TAB PO SCH ×3 (09:32→20:58)
[2023-02-01] MEDS: Thiamine 100 MG TAB PO SCH (09:34)
[2023-02-01] MEDS: Sodium Chloride 1 GM TAB PO SCH ×3 (09:45→21:07)
[2023-02-01] MEDS: Polyethylene Glycol 3350 17 GM Packet PO SCH (09:48)
[2023-02-01] MEDS: Digoxin 0.25 MG TAB PO SCH (20:58)
[2023-02-01] MEDS: Amlodipine 5 MG TAB PO SCH (20:58)
[2023-02-01] MEDS: Montelukast Sodium 10 mg Tablet PO SCH (20:58)
[2023-02-01] MEDS: Folic Acid 1 MG TAB PO SCH (20:58)
[2023-02-01] MEDS: Multivit, Therapeutic 1 TAB PO SCH (20:58)
[2023-02-01] MEDS: Atorvastatin Calcium 40 MG TAB PO SCH (20:58)
[2023-02-01] MEDS: Cyanocobalamin (Vitamin B-12) 1,000 MCG TAB PO SCH (20:58)
[2023-02-02] MEDS: cefTRIAXone\\ROCEPHIN 1 GM in Sodium Chloride 0.9% 100 ML IVPB SCH (00:30)
[2023-02-02] MEDS: Acetaminophen 500 MG TAB PO PRN ×2 (00:33→20:51)
[2023-02-02 04:30] LABS: Hemoglobin 8.2 g/dL (14.0-18.0); Mean Corpuscular HGB CONC 32.3 g/dL (32.0-36.0); Mean Corpuscular Hemoglobin 28.7 pg (27.0-31.0); Mean Corpuscular Volume 88.8 fl (78.0-98.0); Mean Platelet Volume 8.3 fL (7.4-10.4); Platelet Count 659 10x3/uL (130-400); Red Blood Cell (RBC) Count 2.86 mill/uL (4.70-6.10); White Blood Cell (WBC) Count 10.9 10x3/uL (4.8-10.8)
[2023-02-02 04:53] LABS: Anion Gap 15 mmol/L (10-20); BUN (Urea Nitrogen) 11 mg/dL (8.4-25.7); Calc. Creatinine Clearance 89 mL/min (70-130); Calcium 9.2 mg/dL (7.8-10.44); Carbon Dioxide 20 mmol/L (23-31); Chloride 94 mmol/L (98-107); Estimated GFR 92; Glucose 108 mg/dL (83-110); Potassium 3.9 mmol/L (3.5-5.1); Sodium 125 mmol/L (136-145)
[2023-02-02] MEDS: Levothyroxine Sodium 50 MCG TAB PO SCH (06:34)
[2023-02-02] MEDS: Magnesium Oxide 400 MG TAB PO SCH ×3 (09:28→20:50)
[2023-02-02] MEDS: Calcium Carbonate 600 MG TAB PO SCH ×2 (09:28→20:49)
[2023-02-02] MEDS: Ferrous Gluconate 324 MG TAB PO SCH ×2 (09:28→17:50)
[2023-02-02] MEDS: Sodium Chloride 1 GM TAB PO SCH ×3 (09:28→20:58)
[2023-02-02] MEDS: Polyethylene Glycol 3350 17 GM Packet PO SCH (09:29)
[2023-02-02] MEDS: Finasteride 5 MG TAB PO SCH (09:29)
[2023-02-02] MEDS: Senokot S 8.6-50 MG TAB PO SCH ×2 (09:29→22:09)
[2023-02-02] MEDS: Thiamine 100 MG TAB PO SCH (09:31)
[2023-02-02] MEDS: Digoxin 0.25 MG TAB PO SCH (20:49)
[2023-02-02] MEDS: Atorvastatin Calcium 40 MG TAB PO SCH (20:49)
[2023-02-02] MEDS: Amlodipine 5 MG TAB PO SCH (20:50)
[2023-02-02] MEDS: Multivit, Therapeutic 1 TAB PO SCH (20:52)
[2023-02-02] MEDS: Montelukast Sodium 10 mg Tablet PO SCH (20:52)
[2023-02-02] MEDS: Cyanocobalamin (Vitamin B-12) 1,000 MCG TAB PO SCH (20:52)
[2023-02-02] MEDS: Folic Acid 1 MG TAB PO SCH (20:52)
[2023-02-03] MEDS: cefTRIAXone\\ROCEPHIN 1 GM in Sodium Chloride 0.9% 100 ML IVPB SCH (01:55)
[2023-02-03 04:53] LABS: Anion Gap 17 mmol/L (10-20); BUN (Urea Nitrogen) 12 mg/dL (8.4-25.7); Calc. Creatinine Clearance 86 mL/min (70-130); Calcium 9.5 mg/dL (7.8-10.44); Carbon Dioxide 21 mmol/L (23-31); Chloride 95 mmol/L (98-107); Estimated GFR 91; Glucose 106 mg/dL (83-110); Sodium 129 mmol/L (136-145)
[2023-02-03] MEDS: Levothyroxine Sodium 50 MCG TAB PO SCH (06:18)
[2023-02-03] MEDS: Ferrous Gluconate 324 MG TAB PO SCH ×2 (08:26→18:04)
[2023-02-03] MEDS: Sodium Chloride 1 GM TAB PO SCH ×3 (08:26→22:36)
[2023-02-03] MEDS: Calcium Carbonate 600 MG TAB PO SCH ×2 (08:26→22:28)
[2023-02-03] MEDS: Senokot S 8.6-50 MG TAB PO SCH ×2 (08:27→22:33)
[2023-02-03] MEDS: Magnesium Oxide 400 MG TAB PO SCH ×3 (08:27→22:29)
[2023-02-03] MEDS: Finasteride 5 MG TAB PO SCH (08:27)
[2023-02-03] MEDS: Polyethylene Glycol 3350 17 GM Packet PO SCH (08:27)
[2023-02-03] MEDS: Ergocalciferol 1.25 MG(50,000 UNITS) CAP PO SCH (08:45)
[2023-02-03] MEDS: Thiamine 100 MG TAB PO SCH (08:45)
[2023-02-03] MEDS ORDERED: Nitroglycerin 0.4 MG TAB (25 Tab Bottle) SL PRN (19:16)
[2023-02-03 19:55] LABS: Magnesium 1.7 mg/dL (1.6-2.6)
[2023-02-03 19:59] LABS: Troponin I Less than 0.010 ng/mL (< 0.028)
[2023-02-03] MEDS: Cyanocobalamin (Vitamin B-12) 1,000 MCG TAB PO SCH (22:28)
[2023-02-03] MEDS: Digoxin 0.25 MG TAB PO SCH (22:28)
[2023-02-03] MEDS: Folic Acid 1 MG TAB PO SCH (22:28)
[2023-02-03] MEDS: Montelukast Sodium 10 mg Tablet PO SCH (22:29)
[2023-02-03] MEDS: Atorvastatin Calcium 40 MG TAB PO SCH (22:29)
[2023-02-03] MEDS: Amlodipine 5 MG TAB PO SCH (22:29)
[2023-02-03] MEDS: Multivit, Therapeutic 1 TAB PO SCH (22:29)
[2023-02-04] MEDS: Levothyroxine Sodium 50 MCG TAB PO SCH (04:57)
[2023-02-04 05:33] LABS: Anion Gap 14 mmol/L (10-20); BUN (Urea Nitrogen) 12 mg/dL (8.4-25.7); Calc. Creatinine Clearance 90 mL/min (70-130); Calcium 9.2 mg/dL (7.8-10.44); Carbon Dioxide 22 mmol/L (23-31); Chloride 99 mmol/L (98-107); Estimated GFR 92; Glucose 107 mg/dL (83-110); Sodium 131 mmol/L (136-145)
[2023-02-04 06:44] LABS: Magnesium 1.7 mg/dL (1.6-2.6)
[2023-02-04] MEDS ORDERED: Magnesium 2 GM/50 ML(in water) 2 GM in Premix Bag 1 BAG IVPB SCH (08:00)
[2023-02-04] MEDS: Ferrous Gluconate 324 MG TAB PO SCH ×2 (08:23→15:49)
[2023-02-04] MEDS: Calcium Carbonate 600 MG TAB PO SCH ×2 (08:23→20:41)
[2023-02-04] MEDS: Magnesium Oxide 400 MG TAB PO SCH ×3 (08:24→20:41)
[2023-02-04] MEDS: Senokot S 8.6-50 MG TAB PO SCH ×2 (08:24→20:40)
[2023-02-04] MEDS: Finasteride 5 MG TAB PO SCH (08:24)
[2023-02-04] MEDS: Acetaminophen 500 MG TAB PO PRN ×2 (08:25→15:49)
[2023-02-04] MEDS: Sodium Chloride 1 GM TAB PO SCH ×3 (08:33→20:40)
[2023-02-04] MEDS: Polyethylene Glycol 3350 17 GM Packet PO SCH (08:34)
[2023-02-04] MEDS: Thiamine 100 MG TAB PO SCH (09:03)
[2023-02-04] MEDS: cefTRIAXone\\ROCEPHIN 1 GM in Sodium Chloride 0.9% 100 ML IVPB SCH (17:48)
[2023-02-04 17:53] LABS: #Basophils 0.1 thou/uL (0.0-0.2); #Eosinphils 0.2 thou/uL (0.0-0.7); #Monocytes 1.6 thou/uL (0.11-0.59); #Neutrophils 4.8 thou/uL (1.40-6.50); %Basophils 0.7 % (0.0-1.0); %Eosinophils 2.6 % (0.0-10.0); %Lymphocytes 16.9 % (21.0-51.0); %Monocytes 19.8 % (0.0-10.0); %Neutrophils 59.6 % (42.0-75.0); Hemoglobin 7.4 g/dL (14.0-18.0); Mean Corpuscular HGB CONC 31.8 g/dL (32.0-36.0); Mean Corpuscular Hemoglobin 28.5 pg (27.0-31.0); Mean Corpuscular Volume 89.6 fl (78.0-98.0); Mean Platelet Volume 8.4 fL (7.4-10.4); Platelet Count 568 10x3/uL (130-400); RBC Distribution Width 16.2 % (11.5-14.5); White Blood Cell (WBC) Count 8.1 10x3/uL (4.8-10.8)
[2023-02-04] MEDS: Folic Acid 1 MG TAB PO SCH (20:37)
[2023-02-04] MEDS: Cyanocobalamin (Vitamin B-12) 1,000 MCG TAB PO SCH (20:40)
[2023-02-04] MEDS: Montelukast Sodium 10 mg Tablet PO SCH (20:40)
[2023-02-04] MEDS: Multivit, Therapeutic 1 TAB PO SCH (20:41)
[2023-02-04] MEDS: Atorvastatin Calcium 40 MG TAB PO SCH (20:41)
[2023-02-04] MEDS: Digoxin 0.25 MG TAB PO SCH (22:18)
[2023-02-04] MEDS: Amlodipine 5 MG TAB PO SCH (22:18)
[2023-02-04 23:41] LABS: Bilirubin Negative (Negative); Blood, Urine Negative (Negative); CAUTI Indications for Culture Fever or rigors; Clarity Clear (Clear); Glucose, Urine (Dipstick) Normal (Negative); Ketone, Urine Negative (Negative); Leukocyte 75 Leu/uL (Negative); Nitrite Negative (Negative); Protein, Urine (Dipstick) 20 mg/dL (Neg-Trace); Specific Gravity, Urine 1.019 (1.002-1.036); Squamous Epithelial 0-3 HPF (0-3); Urobilinogen Normal mg/dL (Less than 2)
[2023-02-04 23:53] LABS: Bacteria/HPF Rare-Few HPF (None Seen)
[2023-02-04 23:54] LABS: RBC/HPF 0-3 HPF (0-3); Urine Culture Reflex No No
[2023-02-05] MEDS ORDERED: Lorazepam 2 MG/ML VIAL SLOW IVP SCH (01:00)
[2023-02-05 04:54] LABS: #Basophils 0.1 thou/uL (0.0-0.2); #Eosinphils 0.2 thou/uL (0.0-0.7); #Monocytes 1.2 thou/uL (0.11-0.59); #Neutrophils 4.2 thou/uL (1.40-6.50); %Basophils 0.7 % (0.0-1.0); %Eosinophils 2.9 % (0.0-10.0); %Lymphocytes 18.5 % (21.0-51.0); %Monocytes 16.9 % (0.0-10.0); %Neutrophils 60.6 % (42.0-75.0); Hemoglobin 7.7 g/dL (14.0-18.0); Mean Corpuscular HGB CONC 30.6 g/dL (32.0-36.0); Mean Corpuscular Volume 91.6 fl (78.0-98.0); Mean Platelet Volume 8.4 fL (7.4-10.4); Platelet Count 561 10x3/uL (130-400); Red Blood Cell (RBC) Count 2.75 mill/uL (4.70-6.10); White Blood Cell (WBC) Count 6.9 10x3/uL (4.8-10.8)
[2023-02-05 05:20] LABS: Anion Gap 14 mmol/L (10-20); BUN (Urea Nitrogen) 9 mg/dL (8.4-25.7); Calc. Creatinine Clearance 95 mL/min (70-130); Calcium 9.4 mg/dL (7.8-10.44); Carbon Dioxide 22 mmol/L (23-31); Chloride 99 mmol/L (98-107); Estimated GFR 94; Glucose 97 mg/dL (83-110); Magnesium 1.9 mg/dL (1.6-2.6); Potassium 4.2 mmol/L (3.5-5.1); Sodium 131 mmol/L (136-145)
[2023-02-05] MEDS: Levothyroxine Sodium 50 MCG TAB PO SCH (05:50)
[2023-02-05] MEDS ORDERED: Magnesium 2 GM/50 ML(in water) 2 GM in Premix Bag 1 BAG IVPB SCH (08:00)
[2023-02-05] MEDS: Sodium Chloride 1 GM TAB PO SCH ×3 (08:27→20:42)
[2023-02-05] MEDS: Finasteride 5 MG TAB PO SCH (08:27)
[2023-02-05] MEDS: Ferrous Gluconate 324 MG TAB PO SCH ×2 (08:27→16:34)
[2023-02-05] MEDS: Magnesium Oxide 400 MG TAB PO SCH ×3 (08:27→20:46)
[2023-02-05] MEDS: Calcium Carbonate 600 MG TAB PO SCH ×2 (08:28→20:44)
[2023-02-05] MEDS: Senokot S 8.6-50 MG TAB PO SCH ×2 (08:29→20:43)
[2023-02-05] MEDS: Polyethylene Glycol 3350 17 GM Packet PO SCH (08:29)
[2023-02-05] MEDS: Thiamine 100 MG TAB PO SCH (08:30)
[2023-02-05] MEDS: cefTRIAXone\\ROCEPHIN 1 GM in Sodium Chloride 0.9% 100 ML IVPB SCH (16:34)
[2023-02-05] MEDS: Digoxin 0.25 MG TAB PO SCH (20:41)
[2023-02-05] MEDS: Multivit, Therapeutic 1 TAB PO SCH (20:42)
[2023-02-05] MEDS: Amlodipine 5 MG TAB PO SCH (20:42)
[2023-02-05] MEDS: Cyanocobalamin (Vitamin B-12) 1,000 MCG TAB PO SCH (20:43)
[2023-02-05] MEDS: Montelukast Sodium 10 mg Tablet PO SCH (20:44)
[2023-02-05] MEDS: Atorvastatin Calcium 40 MG TAB PO SCH (20:44)
[2023-02-05] MEDS: Folic Acid 1 MG TAB PO SCH (20:45)
[2023-02-06 05:18] LABS: Anion Gap 14 mmol/L (10-20); BUN (Urea Nitrogen) 7 mg/dL (8.4-25.7); Calc. Creatinine Clearance 95 mL/min (70-130); Calcium 9.4 mg/dL (7.8-10.44); Carbon Dioxide 21 mmol/L (23-31); Chloride 103 mmol/L (98-107); Estimated GFR 94; Glucose 97 mg/dL (83-110); Sodium 134 mmol/L (136-145)
[2023-02-06] MEDS: Levothyroxine Sodium 50 MCG TAB PO SCH (07:04)
[2023-02-06] MEDS: Polyethylene Glycol 3350 17 GM Packet PO SCH (09:25)
[2023-02-06] MEDS: Senokot S 8.6-50 MG TAB PO SCH ×2 (09:26→20:19)
[2023-02-06] MEDS: Finasteride 5 MG TAB PO SCH (09:26)
[2023-02-06] MEDS: Ferrous Gluconate 324 MG TAB PO SCH ×2 (09:26→17:27)
[2023-02-06] MEDS: Magnesium Oxide 400 MG TAB PO SCH ×3 (09:26→20:18)
[2023-02-06] MEDS: Thiamine 100 MG TAB PO SCH (09:26)
[2023-02-06] MEDS: Calcium Carbonate 600 MG TAB PO SCH ×2 (09:26→20:19)
[2023-02-06] MEDS: Sodium Chloride 1 GM TAB PO SCH ×3 (09:26→22:17)
[2023-02-06] MEDS: cefTRIAXone\\ROCEPHIN 1 GM in Sodium Chloride 0.9% 100 ML IVPB SCH (17:27)
[2023-02-06] MEDS: Digoxin 0.25 MG TAB PO SCH (20:18)
[2023-02-06] MEDS: Acetaminophen 500 MG TAB PO PRN (20:18)
[2023-02-06] MEDS: Multivit, Therapeutic 1 TAB PO SCH (20:18)
[2023-02-06] MEDS: Amlodipine 5 MG TAB PO SCH (20:19)
[2023-02-06] MEDS: Montelukast Sodium 10 mg Tablet PO SCH (20:19)
[2023-02-06] MEDS: Cyanocobalamin (Vitamin B-12) 1,000 MCG TAB PO SCH (20:19)
[2023-02-06] MEDS: Folic Acid 1 MG TAB PO SCH (20:19)
[2023-02-06] MEDS: Atorvastatin Calcium 40 MG TAB PO SCH (20:20)
[2023-02-07] MEDS: Levothyroxine Sodium 50 MCG TAB PO SCH (05:25)
[2023-02-07 05:49] LABS: Anion Gap 12 mmol/L (10-20); BUN (Urea Nitrogen) 7 mg/dL (8.4-25.7); Calc. Creatinine Clearance 96 mL/min (70-130); Calcium 9.6 mg/dL (7.8-10.44); Carbon Dioxide 22 mmol/L (23-31); Chloride 101 mmol/L (98-107); Estimated GFR 94; Glucose 95 mg/dL (83-110); Potassium 3.9 mmol/L (3.5-5.1); Sodium 131 mmol/L (136-145)
[2023-02-07] MEDS: Calcium Carbonate 600 MG TAB PO SCH ×2 (09:49→20:33)
[2023-02-07] MEDS: Ferrous Gluconate 324 MG TAB PO SCH ×2 (09:49→17:20)
[2023-02-07] MEDS: Senokot S 8.6-50 MG TAB PO SCH ×2 (09:49→20:32)
[2023-02-07] MEDS: Finasteride 5 MG TAB PO SCH (09:49)
[2023-02-07] MEDS: Thiamine 100 MG TAB PO SCH (09:49)
[2023-02-07] MEDS: Magnesium Oxide 400 MG TAB PO SCH ×3 (09:50→20:32)
[2023-02-07] MEDS: Polyethylene Glycol 3350 17 GM Packet PO SCH (09:51)
[2023-02-07] MEDS: Sodium Chloride 1 GM TAB PO SCH ×3 (09:59→20:32)
[2023-02-07] MEDS: cefTRIAXone\\ROCEPHIN 1 GM in Sodium Chloride 0.9% 100 ML IVPB SCH (17:19)
[2023-02-07] MEDS: Atorvastatin Calcium 40 MG TAB PO SCH (20:32)
[2023-02-07] MEDS: Digoxin 0.25 MG TAB PO SCH (20:32)
[2023-02-07] MEDS: Montelukast Sodium 10 mg Tablet PO SCH (20:32)
[2023-02-07] MEDS: Acetaminophen 500 MG TAB PO PRN (20:33)
[2023-02-07] MEDS: Multivit, Therapeutic 1 TAB PO SCH (20:33)
[2023-02-07] MEDS: Folic Acid 1 MG TAB PO SCH (20:33)
[2023-02-07] MEDS: Cyanocobalamin (Vitamin B-12) 1,000 MCG TAB PO SCH (20:33)
[2023-02-07] MEDS: Amlodipine 5 MG TAB PO SCH (21:00)
[2023-02-08 05:04] LABS: Hemoglobin 8.1 g/dL (14.0-18.0); Manual Diff?? YES; Mean Corpuscular HGB CONC 31.8 g/dL (32.0-36.0); Mean Corpuscular Hemoglobin 28.4 pg (27.0-31.0); Mean Corpuscular Volume 89.5 fl (78.0-98.0); Mean Platelet Volume 8.7 fL (7.4-10.4); Platelet Count 502 10x3/uL (130-400); RBC Distribution Width 16.1 % (11.5-14.5); Red Blood Cell (RBC) Count 2.85 mill/uL (4.70-6.10); White Blood Cell (WBC) Count 5.7 10x3/uL (4.8-10.8)
[2023-02-08 05:05] LABS: Delete Auto Diff?? YES
[2023-02-08] MEDS: Levothyroxine Sodium 50 MCG TAB PO SCH (05:25)
[2023-02-08 05:34] LABS: Anion Gap 18 mmol/L (10-20); BUN (Urea Nitrogen) 7 mg/dL (8.4-25.7); Calc. Creatinine Clearance 87 mL/min (70-130); Carbon Dioxide 20 mmol/L (23-31); Chloride 104 mmol/L (98-107); Potassium 4.2 mmol/L (3.5-5.1); Sodium 138 mmol/L (136-145)
[2023-02-08 05:35] LABS: Calcium 9.5 mg/dL (7.8-10.44); Estimated GFR 91; Glucose 100 mg/dL (83-110); Magnesium 1.7 mg/dL (1.6-2.6)
[2023-02-08 05:40] LABS: Band 10 % (5-11); Eosinophils 2 % (0-10); Lymphocytes 32 % (21-51); Monocytes 15 % (0-10); Neutrophil 41 % (42-75)
[2023-02-08 05:41] LABS: CellaVision Operator ID LAB.CLH1; Hypochromia SLIGHT = 6-15 cells HPF (0-5); Large Platelets 2.6 % (0-5); Macrocytosis SLIGHT = 6-15 cells HPF (0-5); Platelet Adequacy Comment Platelets Normal; Polychromasia SLIGHT = 2-3 cells HPF (0-2); Total Cell Count 116
[2023-02-08] MEDS ORDERED: Magnesium 2 GM/50 ML(in water) 2 GM in Premix Bag 1 BAG IVPB SCH (08:00)
[2023-02-08] MEDS: Polyethylene Glycol 3350 17 GM Packet PO SCH (09:56)
[2023-02-08] MEDS: Senokot S 8.6-50 MG TAB PO SCH ×2 (09:56→20:33)
[2023-02-08] MEDS: Ferrous Gluconate 324 MG TAB PO SCH ×2 (09:57→16:33)
[2023-02-08] MEDS: Thiamine 100 MG TAB PO SCH (09:57)
[2023-02-08] MEDS: Calcium Carbonate 600 MG TAB PO SCH ×2 (09:57→20:26)
[2023-02-08] MEDS: Magnesium Oxide 400 MG TAB PO SCH ×3 (09:57→20:29)
[2023-02-08] MEDS: Finasteride 5 MG TAB PO SCH (09:57)
[2023-02-08] MEDS: Sodium Chloride 1 GM TAB PO SCH ×2 (10:00→14:53)
[2023-02-08] MEDS: cefTRIAXone\\ROCEPHIN 1 GM in Sodium Chloride 0.9% 100 ML IVPB SCH (16:33)
[2023-02-08] MEDS: Digoxin 0.25 MG TAB PO SCH (20:26)
[2023-02-08] MEDS: Amlodipine 5 MG TAB PO SCH (20:26)
[2023-02-08] MEDS: Folic Acid 1 MG TAB PO SCH (20:26)
[2023-02-08] MEDS: Cyanocobalamin (Vitamin B-12) 1,000 MCG TAB PO SCH (20:27)
[2023-02-08] MEDS: Atorvastatin Calcium 40 MG TAB PO SCH (20:28)
[2023-02-08] MEDS: Montelukast Sodium 10 mg Tablet PO SCH (20:33)
[2023-02-08] MEDS: Multivit, Therapeutic 1 TAB PO SCH (20:33)
[2023-02-08] MEDS: Sodium Bicarbonate Tab 325 MG TAB PO SCH (20:51)
[2023-02-09 04:16] LABS: Hemoglobin 7.8 g/dL (14.0-18.0); Manual Diff?? YES; Mean Corpuscular HGB CONC 32.4 g/dL (32.0-36.0); Mean Corpuscular Hemoglobin 28.4 pg (27.0-31.0); Mean Corpuscular Volume 87.6 fl (78.0-98.0); Mean Platelet Volume 8.8 fL (7.4-10.4); Platelet Count 466 10x3/uL (130-400); RBC Distribution Width 16.3 % (11.5-14.5); Red Blood Cell (RBC) Count 2.75 mill/uL (4.70-6.10); White Blood Cell (WBC) Count 6.2 10x3/uL (4.8-10.8)
[2023-02-09 04:42] LABS: Anion Gap 18 mmol/L (10-20); BUN (Urea Nitrogen) 7 mg/dL (8.4-25.7); Calc. Creatinine Clearance 95 mL/min (70-130); Calcium 9.4 mg/dL (7.8-10.44); Carbon Dioxide 18 mmol/L (23-31); Chloride 102 mmol/L (98-107); Estimated GFR 94; Glucose 99 mg/dL (83-110); Magnesium 1.8 mg/dL (1.6-2.6); Potassium 3.8 mmol/L (3.5-5.1); Sodium 134 mmol/L (136-145)
[2023-02-09 04:54] LABS: Delete Auto Diff?? YES
[2023-02-09] MEDS: Sodium Bicarbonate Tab 325 MG TAB PO SCH ×3 (05:38→20:19)
[2023-02-09] MEDS: Levothyroxine Sodium 50 MCG TAB PO SCH (05:38)
[2023-02-09 05:50] LABS: Anisocytosis MODERATE=16-30 cells HPF (0-5); Band 3 % (5-11); CellaVision Operator ID LAB.JMM; Eosinophils 5 % (0-10); Lymphocytes 24 % (21-51); Macrocytosis SLIGHT = 6-15 cells HPF (0-5); Monocytes 11 % (0-10); Neutrophil 56 % (42-75); Platelet Adequacy Comment Platelets Normal; Total Cell Count 102
[2023-02-09] MEDS ORDERED: Magnesium 2 GM/50 ML(in water) 2 GM in Premix Bag 1 BAG IVPB SCH (08:00)
[2023-02-09] MEDS: Finasteride 5 MG TAB PO SCH (09:49)
[2023-02-09] MEDS: Calcium Carbonate 600 MG TAB PO SCH ×2 (09:50→20:19)
[2023-02-09] MEDS: Ferrous Gluconate 324 MG TAB PO SCH ×2 (09:50→17:47)
[2023-02-09] MEDS: Magnesium Oxide 400 MG TAB PO SCH ×3 (09:50→20:20)
[2023-02-09] MEDS: Senokot S 8.6-50 MG TAB PO SCH ×2 (09:50→20:20)
[2023-02-09] MEDS: Polyethylene Glycol 3350 17 GM Packet PO SCH (09:51)
[2023-02-09] MEDS: Thiamine 100 MG TAB PO SCH (09:55)
[2023-02-09] MEDS: Multivit, Therapeutic 1 TAB PO SCH (20:19)
[2023-02-09] MEDS: Cyanocobalamin (Vitamin B-12) 1,000 MCG TAB PO SCH (20:19)
[2023-02-09] MEDS: Atorvastatin Calcium 40 MG TAB PO SCH (20:19)
[2023-02-09] MEDS: Folic Acid 1 MG TAB PO SCH (20:19)
[2023-02-09] MEDS: Digoxin 0.25 MG TAB PO SCH (20:20)
[2023-02-09] MEDS: Montelukast Sodium 10 mg Tablet PO SCH (20:20)
[2023-02-10] MEDS: Sodium Bicarbonate Tab 325 MG TAB PO SCH ×2 (05:08→16:29)
[2023-02-10] MEDS: Levothyroxine Sodium 50 MCG TAB PO SCH (05:08)
[2023-02-10 05:17] LABS: Manual Diff?? YES; Mean Corpuscular HGB CONC 30.5 g/dL (32.0-36.0); Mean Corpuscular Hemoglobin 27.6 pg (27.0-31.0); Mean Corpuscular Volume 90.3 fl (78.0-98.0); Mean Platelet Volume 8.9 fL (7.4-10.4); Platelet Count 466 10x3/uL (130-400); RBC Distribution Width 16.1 % (11.5-14.5); White Blood Cell (WBC) Count 5.8 10x3/uL (4.8-10.8)
[2023-02-10 05:51] LABS: Anion Gap 16 mmol/L (10-20); BUN (Urea Nitrogen) 7 mg/dL (8.4-25.7); Calc. Creatinine Clearance 94 mL/min (70-130); Carbon Dioxide 22 mmol/L (23-31); Chloride 98 mmol/L (98-107); Potassium 3.7 mmol/L (3.5-5.1); Sodium 132 mmol/L (136-145)
[2023-02-10 05:52] LABS: Calcium 9.6 mg/dL (7.8-10.44); Estimated GFR 93; Glucose 99 mg/dL (83-110)
[2023-02-10 06:09] LABS: Delete Auto Diff?? YES
[2023-02-10 08:46] LABS: Band 3 % (5-11); Eosinophils 6 % (0-10); Lymphocytes 31 % (21-51); Monocytes 14 % (0-10); Neutrophil 43 % (42-75); Reactive Lymphocytes 3 % (0-10)
[2023-02-10 08:47] LABS: Hypochromia SLIGHT = 6-15 cells (100X) (0-5/hpf)
[2023-02-10] MEDS: Ferrous Gluconate 324 MG TAB PO SCH ×2 (10:32→16:29)
[2023-02-10] MEDS: Calcium Carbonate 600 MG TAB PO SCH ×2 (10:32→21:59)
[2023-02-10] MEDS: Ergocalciferol 1.25 MG(50,000 UNITS) CAP PO SCH (10:33)
[2023-02-10] MEDS: Thiamine 100 MG TAB PO SCH (10:33)
[2023-02-10] MEDS: Finasteride 5 MG TAB PO SCH (10:33)
[2023-02-10] MEDS: Magnesium Oxide 400 MG TAB PO SCH ×3 (10:33→21:58)
[2023-02-10] MEDS: Senokot S 8.6-50 MG TAB PO SCH ×2 (10:33→21:58)
[2023-02-10] MEDS: Polyethylene Glycol 3350 17 GM Packet PO SCH (10:34)
[2023-02-10] MEDS: Atorvastatin Calcium 40 MG TAB PO SCH (21:58)
[2023-02-10] MEDS: Multivit, Therapeutic 1 TAB PO SCH (21:58)
[2023-02-10] MEDS: Folic Acid 1 MG TAB PO SCH (21:58)
[2023-02-10] MEDS: Montelukast Sodium 10 mg Tablet PO SCH (21:58)
[2023-02-10] MEDS: Cyanocobalamin (Vitamin B-12) 1,000 MCG TAB PO SCH (21:58)
[2023-02-10] MEDS: Digoxin 0.25 MG TAB PO SCH (22:02)
[2023-02-11] MEDS: Levothyroxine Sodium 50 MCG TAB PO SCH (05:42)
[2023-02-11] MEDS: Thiamine 100 MG TAB PO SCH (08:27)
[2023-02-11] MEDS: Finasteride 5 MG TAB PO SCH (08:27)
[2023-02-11] MEDS: Senokot S 8.6-50 MG TAB PO SCH ×3 (08:27→21:19)
[2023-02-11] MEDS: Polyethylene Glycol 3350 17 GM Packet PO SCH (08:27)
[2023-02-11] MEDS: Magnesium Oxide 400 MG TAB PO SCH (08:27)
[2023-02-11] MEDS: Calcium Carbonate 600 MG TAB PO SCH ×3 (08:27→21:20)
[2023-02-11] MEDS: Ferrous Gluconate 324 MG TAB PO SCH ×2 (08:27→17:51)
[2023-02-11] MEDS ORDERED: Magnesium Chloride 64 MG TAB PO SCH (14:30)
[2023-02-11 15:53] LABS: Anion Gap 16 mmol/L (10-20); BUN (Urea Nitrogen) 6 mg/dL (8.4-25.7); Calc. Creatinine Clearance 92 mL/min (70-130); Calcium 9.4 mg/dL (7.8-10.44); Carbon Dioxide 20 mmol/L (23-31); Chloride 97 mmol/L (98-107); Estimated GFR 93; Glucose 92 mg/dL (83-110); Magnesium 1.4 mg/dL (1.6-2.6); Phosphorus 5.1 mg/dL (2.3-4.7); Potassium 3.9 mmol/L (3.5-5.1); Sodium 129 mmol/L (136-145)
[2023-02-11] MEDS ORDERED: Magnesium Sulfate In Water 4 GM in Premix Bag 1 BAG IVPB SCH (17:00)
[2023-02-11] MEDS: Acetaminophen 500 MG TAB PO PRN (17:54)
[2023-02-11] MEDS ORDERED: traMADol HCl 50 MG TAB PO PRN (19:30)
[2023-02-11 20:45] LABS: Hemoglobin 8.3 g/dL (14.0-18.0); Manual Diff?? YES; Mean Corpuscular HGB CONC 31.6 g/dL (32.0-36.0); Mean Corpuscular Hemoglobin 27.9 pg (27.0-31.0); Mean Corpuscular Volume 88.6 fl (78.0-98.0); Mean Platelet Volume 8.1 fL (7.4-10.4); Platelet Count 400 10x3/uL (130-400); RBC Distribution Width 16.4 % (11.5-14.5); Red Blood Cell (RBC) Count 2.97 mill/uL (4.70-6.10); White Blood Cell (WBC) Count 8.4 10x3/uL (4.8-10.8)
[2023-02-11 20:51] LABS: Delete Auto Diff?? YES
[2023-02-11] MEDS: Cyanocobalamin (Vitamin B-12) 1,000 MCG TAB PO SCH ×2 (20:55→21:21)
[2023-02-11] MEDS: Folic Acid 1 MG TAB PO SCH ×2 (20:56→21:19)
[2023-02-11] MEDS: Montelukast Sodium 10 mg Tablet PO SCH ×2 (20:56→21:19)
[2023-02-11] MEDS: Atorvastatin Calcium 40 MG TAB PO SCH ×2 (20:56→21:19)
[2023-02-11] MEDS: Multivit, Therapeutic 1 TAB PO SCH ×2 (20:56→21:18)
[2023-02-11] MEDS: Magnesium Chloride 64 MG TAB PO SCH ×2 (20:56→21:19)
[2023-02-11] MEDS: Digoxin 0.25 MG TAB PO SCH (20:58)
[2023-02-11] MEDS: Lidocaine 4% Patch TD SCH (21:17)
[2023-02-11 21:26] LABS: Anisocytosis SLIGHT = 6-15 cells HPF (0-5); CellaVision Operator ID lab.abc; Eosinophils 7 % (0-10); Lymphocytes 22 % (21-51); Monocytes 24 % (0-10); Neutrophil 48 % (42-75); Platelet Adequacy Comment Platelets Normal; Polychromasia SLIGHT = 2-3 cells HPF (0-2); Total Cell Count 101
[2023-02-12] MEDS ORDERED: Sodium Bicarbonate 150 MEQ in Dextrose 5% in Water 1,000 ML IV SCH (05:15)
[2023-02-12] MEDS: Levothyroxine Sodium 50 MCG TAB PO SCH (06:06)
[2023-02-12] MEDS: Sodium Chloride 1 GM TAB PO SCH ×3 (06:06→20:24)
[2023-02-12 06:28] LABS: Manual Diff?? YES; Mean Corpuscular Hemoglobin 27.5 pg (27.0-31.0); Mean Corpuscular Volume 88.7 fl (78.0-98.0); Mean Platelet Volume 8.5 fL (7.4-10.4); Platelet Count 468 10x3/uL (130-400); RBC Distribution Width 16.3 % (11.5-14.5); Red Blood Cell (RBC) Count 3.27 mill/uL (4.70-6.10); White Blood Cell (WBC) Count 7.2 10x3/uL (4.8-10.8)
[2023-02-12 06:32] LABS: Delete Auto Diff?? YES
[2023-02-12 06:44] LABS: Bacteria/HPF None Seen HPF (None Seen); Bilirubin Negative (Negative); Blood, Urine Negative (Negative); Clarity Clear (Clear); Glucose, Urine (Dipstick) Normal (Negative); Ketone, Urine Negative (Negative); Leukocyte 75 Leu/uL (Negative); Nitrite Negative (Negative); Protein, Urine (Dipstick) 10 mg/dL (Neg-Trace); RBC/HPF 0-3 HPF (0-3); Specific Gravity, Urine 1.013 (1.002-1.036); Squamous Epithelial 0-3 HPF (0-3); Urobilinogen Normal mg/dL (Less than 2); WBC/HPF Greater than 50 HPF (0-3); pH, Urine 7.5 (5.0-9.0)
[2023-02-12 06:53] LABS: Anion Gap 10 mmol/L (10-20); BUN (Urea Nitrogen) 8 mg/dL (8.4-25.7); Calc. Creatinine Clearance 83 mL/min (70-130); Calcium 9.7 mg/dL (7.8-10.44); Carbon Dioxide 22 mmol/L (23-31); Chloride 99 mmol/L (98-107); Estimated GFR 90; Glucose 120 mg/dL (83-110); Phosphorus 5.6 mg/dL (2.3-4.7); Potassium 3.8 mmol/L (3.5-5.1); Sodium 127 mmol/L (136-145)
[2023-02-12 06:56] LABS: Band 2 % (5-11); CellaVision Operator ID lab.abc; Hypochromia SLIGHT = 6-15 cells HPF (0-5); Lymphocytes 17 % (21-51); Metamyelocyte 1 % (0-0); Monocytes 24 % (0-10); Neutrophil 57 % (42-75); Platelet Adequacy Comment Platelets Increased; Polychromasia SLIGHT = 2-3 cells HPF (0-2); Total Cell Count 102
[2023-02-12 07:04] LABS: Creatinine, Urine 93.61 mg/dL (63-166)
[2023-02-12] MEDS ORDERED: Magnesium 2 GM/50 ML(in water) 2 GM in Premix Bag 1 BAG IVPB SCH (08:00)
[2023-02-12] MEDS: Senokot S 8.6-50 MG TAB PO SCH ×2 (08:05→20:58)
[2023-02-12] MEDS: Finasteride 5 MG TAB PO SCH (08:05)
[2023-02-12] MEDS: Ferrous Gluconate 324 MG TAB PO SCH ×2 (08:05→16:08)
[2023-02-12] MEDS: Calcium Carbonate 600 MG TAB PO SCH ×2 (08:05→20:22)
[2023-02-12] MEDS: Polyethylene Glycol 3350 17 GM Packet PO SCH (08:06)
[2023-02-12] MEDS: Magnesium Chloride 64 MG TAB PO SCH ×2 (08:06→20:23)
[2023-02-12] MEDS: Thiamine 100 MG TAB PO SCH (08:09)
[2023-02-12] MEDS: Transdermal Patch Removal TOP SCH (08:13)
[2023-02-12 17:01] LABS: Potassium 4.2 mmol/L (3.5-5.1); Sodium 130 mmol/L (136-145)
[2023-02-12] MEDS: Cyanocobalamin (Vitamin B-12) 1,000 MCG TAB PO SCH (20:22)
[2023-02-12] MEDS: Folic Acid 1 MG TAB PO SCH (20:22)
[2023-02-12] MEDS: Digoxin 0.25 MG TAB PO SCH (20:22)
[2023-02-12] MEDS: Atorvastatin Calcium 40 MG TAB PO SCH (20:22)
[2023-02-12] MEDS: Montelukast Sodium 10 mg Tablet PO SCH (20:23)
[2023-02-12] MEDS: Multivit, Therapeutic 1 TAB PO SCH (20:23)
[2023-02-12] MEDS: Acetaminophen 500 MG TAB PO PRN (20:27)
[2023-02-12] MEDS: Lidocaine 4% Patch TD SCH (20:41)
[2023-02-13] MEDS: Sodium Chloride 1 GM TAB PO SCH ×2 (04:59→12:45)
[2023-02-13] MEDS: Levothyroxine Sodium 50 MCG TAB PO SCH (05:00)
[2023-02-13 06:55] LABS: Anion Gap 15 mmol/L (10-20); BUN (Urea Nitrogen) 10 mg/dL (8.4-25.7); Calc. Creatinine Clearance 83 mL/min (70-130); Calcium 9.7 mg/dL (7.8-10.44); Carbon Dioxide 24 mmol/L (23-31); Chloride 98 mmol/L (98-107); Estimated GFR 90; Glucose 101 mg/dL (83-110); Potassium 3.9 mmol/L (3.5-5.1); Sodium 133 mmol/L (136-145)
[2023-02-13] MEDS: Ferrous Gluconate 324 MG TAB PO SCH ×2 (08:33→15:22)
[2023-02-13] MEDS: Senokot S 8.6-50 MG TAB PO SCH ×2 (08:33→19:53)
[2023-02-13] MEDS: Polyethylene Glycol 3350 17 GM Packet PO SCH (08:33)
[2023-02-13] MEDS: Thiamine 100 MG TAB PO SCH (08:33)
[2023-02-13] MEDS: Calcium Carbonate 600 MG TAB PO SCH ×2 (08:33→19:53)
[2023-02-13] MEDS: Finasteride 5 MG TAB PO SCH (08:33)
[2023-02-13] MEDS: Transdermal Patch Removal TOP SCH (08:33)
[2023-02-13] MEDS: Magnesium Chloride 64 MG TAB PO SCH ×2 (12:45→19:54)
[2023-02-13] MEDS ORDERED: Lidocaine 4% Patch TD SCH (15:00)
[2023-02-13 19:29] VITALS: BP 121/69; TEMP 98.5
[2023-02-13] MEDS: Atorvastatin Calcium 40 MG TAB PO SCH (19:53)
[2023-02-13] MEDS: Montelukast Sodium 10 mg Tablet PO SCH (19:53)
[2023-02-13] MEDS: Folic Acid 1 MG TAB PO SCH (19:53)
[2023-02-13] MEDS: Digoxin 0.25 MG TAB PO SCH (19:54)
[2023-02-13] MEDS: Cyanocobalamin (Vitamin B-12) 1,000 MCG TAB PO SCH (19:54)
[2023-02-13] MEDS: Multivit, Therapeutic 1 TAB PO SCH (19:54)
[2023-02-14] MEDS ORDERED: Transdermal Patch Removal TOP SCH (03:00)
== END 2023-02-13 21:00 | DRG 896 ==
LOC: ERS 21:16 → 2NO 01-19 03:21 → T4-A 02-10 18:35
PROVIDERS: ADMIT Student in an Organized Health Care Education/Training Program; ATTEND Internal Medicine
PROC: 30233N1 Transfusion of Nonautologous Red Blood Cells into Peripheral Vein, Percutaneous Approach (ICD-10-PCS; principal; 2023-01-19)
DX: F10.239 Alcohol dependence with withdrawal, unspecified (principal); G92.8 Other toxic encephalopathy; E22.2 Syndrome of inappropriate secretion of antidiuretic hormone; S22.32XA Fracture of one rib, left side, initial encounter for closed fracture; S82.142A Displaced bicondylar fracture of left tibia, initial encounter for closed fracture; E87.20 Acidosis, unspecified; I48.19 Other persistent atrial fibrillation; M62.82 Rhabdomyolysis; I5A Non-ischemic myocardial injury (non-traumatic); N39.0 Urinary tract infection, site not specified; E03.9 Hypothyroidism, unspecified; E78.5 Hyperlipidemia, unspecified; E78.00 Pure hypercholesterolemia, unspecified; I10 Essential (primary) hypertension; D69.6 Thrombocytopenia, unspecified; E83.42 Hypomagnesemia; I48.0 Paroxysmal atrial fibrillation; D50.9 Iron deficiency anemia, unspecified; W19.XXXA Unspecified fall, initial encounter; Z90.49 Acquired absence of other specified parts of digestive tract; Z98.890 Other specified postprocedural states; Z88.8 Allergy status to other drugs, medicaments and biological substances; Z79.01 Long term (current) use of anticoagulants; Z79.899 Other long term (current) drug therapy
CPT/HCPCS: 36415; 36416; 36430; 51701; 70450; 71045; 72125; 72170; 77075; 80048; 80053; 80307; 81001; 82010; 82140; 82550; 82553; 82570; 82728; 83540; 83550; 83735; 83883; 83930; 83935; 84100; 84155; 84165; 84295; 84300; 84439; 84443; 84484; 85025; 85027; 85046; 86850; 86900; 86901; 87040; 87086; 93005; 93010; 96374; 97139; A9579; J0696; J1650; J2060; J2405; J3411; J3475; J3480; J3490; J7050; J7070; J7120; P9016; P9047

== ENCOUNTER 2025-05-22 15:51 | Emergency (ER) | payer MEDICARE ==
[2025-05-22 16:19] LABS: #Basophils Less than 0.03 10x3/uL (0.0-0.2); #Eosinophils 0.05 10x3/uL (0.0-0.7); #Monocytes 0.38 10x3/uL (0.11-0.59); #Neutrophils 3.34 10x3/uL (1.40-6.50); %Basophils 0.4 % (0.0-1.0); %Eosinophils 1.0 % (0.0-10.0); %Lymphocytes 22.0 % (21.0-51.0); %Monocytes 7.8 % (0.0-10.0); %Neutrophils 68.6 % (42.0-75.0); Hematocrit 29.7 % (42.0-52.0); Hemoglobin 9.2 g/dL (14.0-18.0); Mean Corpuscular Hemoglobin 24.5 pg (27.0-31.0); Mean Corpuscular Volume 79.2 fL (78.0-98.0); Platelet Count 157 10x3/uL (130-400); Red Blood Cell (RBC) Count 3.75 mill/uL (4.70-6.10); White Blood Cell (WBC) Count 4.87 10x3/uL (4.8-10.8)
[2025-05-22 16:32] LABS: INR-International Normal Ratio 1.2; Prothrombin Time 15.4 sec (12.0-14.7)
[2025-05-22 16:33] LABS: PTT 43.4 sec (22.9-36.1)
[2025-05-22 16:38] LABS: ALT (SGPT) 8 U/L (Less than 45); AST (SGOT) 36 U/L (11-34); Albumin 3.4 g/dL (3.1-4.5); Alkaline Phosphatase 126 U/L (40-110); Anion Gap 16 mmol/L (10-20); BUN (Urea Nitrogen) 6 mg/dL (8.4-25.7); Bilirubin, Total 1.0 mg/dL (0.3-1.2); CK (CPK) 87 U/L (30-200); Calc. Creatinine Clearance 0 mL/min (70-130); Calcium 8.4 mg/dL (7.8-10.44); Carbon Dioxide 15 mmol/L (23-31); Chloride 93 mmol/L (98-107); Globulin 2.9 g/dL (2.4-3.5); Glucose 122 mg/dL (83-110); Magnesium 1.2 mg/dL (1.6-2.6); Potassium 4.0 mmol/L (3.5-5.1); Sodium 120 mmol/L (136-145)
[2025-05-22 18:47] LABS: Actual Bicarbonate (HCO3v) 16.6 mEq/L (22-28); Base Excess -8.5 mEq/L (-2.0 to +3.0); Calcium, Ionized (venous) 1.05 mmol/L (1.16-1.32); Chloride (VBG) 91 mmol/L (98-106); Hematocrit-VBG 32 % (42.0-52.0); Hemoglobin (Hb) 11.0 g/dL (12.6-17.4); Potassium (VBG) 3.96 mmol/L (3.70-5.30); Sodium 121 mmol/L (133-146)
[2025-05-22 20:05] LABS: Bacteria/HPF None Seen HPF (None Seen); CAUTI Indications for Culture Fever or rigors; Glucose, Urine (Dipstick) Normal (Negative); Leukocyte Negative Leu/uL (Negative); Protein, Urine (Dipstick) Negative (Neg-Trace); RBC/HPF 0-3 HPF (0-3); Specific Gravity, Urine 1.012 (1.002-1.036); WBC/HPF 0-3 HPF (0-3)
[2025-05-22 20:13] LABS: Urine Culture Reflex No No
[2025-05-22] MEDS ORDERED: Magnesium 2 GM/50 ML BAG (IN WATER) ONE (20:55)
[2025-05-22] MEDS ORDERED: Magnesium 2 GM/50 ML(in water) 2 GM in Premix 1 BAG IVPB SCH (21:00)
== END 2025-05-22 23:00 | disposition short-term general hospital (02) ==
LOC: ERS 15:51
DX: E87.1 Hypo-osmolality and hyponatremia (principal); F10.10 Alcohol abuse, uncomplicated; I10 Essential (primary) hypertension; E78.00 Pure hypercholesterolemia, unspecified; E03.9 Hypothyroidism, unspecified; I48.91 Unspecified atrial fibrillation; Y90.9 Presence of alcohol in blood, level not specified; Z55.6 Problems related to health literacy; Z79.01 Long term (current) use of anticoagulants
CPT/HCPCS: 70450; 71045; 72125; 80053; 81001; 82550; 82805; 82962; 83605; 83735; 83880; 84100; 84484; 85025; 85610; 85730; 93005; 96365; 96366; 96375; 99285; J2060; J3475; 36415; 36416